=== PATIENT | female | born 1965 | race Caucasian/White ===

== ENCOUNTER 2017-12-26 11:19 | Outpatient (REF) | payer MEDICAID, SELFPAY ==
[2017-12-26 13:32] LABS: ALT 18 U/L (12-78); AST 21 U/L (15-37); Albumin 3.4 g/dL (3.4-5.0); Alkaline Phosphatase 135 U/L (46-116); Anion Gap 9.1 mmol/L (3-11); BUN 8 mg/dL (7-18); Bilirubin, Total 0.5 mg/dL (0.2-1.0); CO2 24.9 mmol/L (21.0-32.0); CREATININE 1.09 mg/dL (0.55-1.02); Calcium 8.9 mg/dL (8.5-10.1); Chloride 107 mmol/L (98-107); Cholesterol 194 mg/dL (50-200); Estimated GFR 52.31 (mL/min/1.73m2); Glucose 112 mg/dL (70-100); HDL Cholesterol 39 mg/dL (40-60); LDL CHOLESTEROL 109 mg/dL (<100); Potassium 3.7 mmol/L (3.5-5.1); Sodium 141 mmol/L (136-145); TSH (W/Ref FT4) 1.64 uIU/mL (0.358-3.74); Triglyceride 266 mg/dL (30-150)
== END 2017-12-26 11:39 ==
LOC: NCHCN 11:19
PROVIDERS: PCP Nurse Practitioner Family; Visit Provider Nurse Practitioner Family
DX: R68.89 Other general symptoms and signs (principal); Z13.6 Encounter for screening for cardiovascular disorders; Z13.1 Encounter for screening for diabetes mellitus
CPT/HCPCS: 80053; 80061; 83721; 84443

== ENCOUNTER 2018-01-11 14:55 | Outpatient (REF) | payer MEDICAID, SELFPAY ==
[2018-01-11 19:12] LABS: HCT 44.8 % (36.0-46.0); HGB 15.1 g/dL (12.0-15.5); Mean Corp. HGB Concentration 33.7 g/dL (32.0-36.0); Mean Corpuscular Hemoglobin 29.9 pg (27.0-33.0); Mean Corpuscular Volume 88.7 fL (80-95); Mean Platelet Volume 10.3 fL (8.0-11.0); Platelet Count 264 x1000/uL (130-400); RBC 5.05 m/cumm (4.00-5.20); RBC Distribution Width 14.4 % (11.7-14.6); White Blood Cell Count 6.67 k/cumm (4.4-10.8)
[2018-01-15 10:23] LABS: Hepatitis C Ab w Rflx HCV PCR Negative (NEGAT)
== END 2018-01-11 15:15 ==
LOC: NCHCN 14:55
PROVIDERS: PCP Nurse Practitioner Family; Visit Provider Nurse Practitioner Family
DX: R74.8 Abnormal levels of other serum enzymes (principal); Z11.59 Encounter for screening for other viral diseases
CPT/HCPCS: 85027; 86803

== ENCOUNTER 2018-01-22 00:49 | Outpatient (CLI) | payer MEDICAID, SELFPAY ==
--- NOTE | 2018-01-22 13:12 | DI.MAMMO_ITS ---
SYMPTOM/DIAGNOSIS: SCREENING, Z12.31 PREVENTATIVE CARE, Z00.00 BILATERAL SCREENING MAMMOGRAM: Mammograms were interpreted according to the usual protocol including computer analysis with CAD system, tomosynthesis and C view imaging. Comparison is made with exams from 2013 through 2017. The breasts are composed of scattered fibroglandular densities, breast density category B. A biopsy marker clip is again noted in the upper outer quadrant of the right breast. No suspicious masses or suspicious microcalcifications are seen. There has been no significant change. IMPRESSION: Category 1-B, negative mammogram. Yearly screening mammography is recommended. [facility] ASSESSMENT OF FINDINGS: Negative. Category 1. Patient will receive a letter notifying them of these results. BI-RADS category B. There are scattered areas of fibroglandular density.
== END 2018-01-22 01:09 ==
PROVIDERS: PCP Nurse Practitioner Family; Visit Provider Nurse Practitioner Family
DX: Z12.31 Encounter for screening mammogram for malignant neoplasm of breast (principal)
CPT/HCPCS: 77063; 77067

== ENCOUNTER 2018-06-29 14:54 | Emergency (ER) | payer MEDICARE, MEDICAID, SELFPAY ==
[2018-06-29] VITALS (11 sets, daily range): BP systolic 125–140; BP diastolic 48–77; PULSE 59–77; RESP 14–24; TEMP 36.1; O2SAT 97
--- NOTE | 2018-06-29 15:15 | DI.RAD_ITS ---
SYMPTOMS/DIAGNOSIS: CHEST PAIN AP AND LATERAL CHEST: Comparison is made with October,. The heart size is normal. The aorta is mildly tortuous. The lungs are clear. The right diaphragm is mildly elevated. IMPRESSION: No acute abnormality.
--- NOTE | 2018-06-29 15:15 | DI.CT_ITS ---
SYMPTOMS/DIAGNOSIS: HEADACHE, DIZZINESS NONCONTRAST HEAD CT: No intracranial hemorrhage or skull fracture is seen. The ventricles are normal in size. There is no evidence of mass or infarct. The visualized portions of the sinuses and mastoid air cells appear clear. IMPRESSION: Negative head CT.
--- NOTE | 2018-06-29 15:24 | ED.GENADUL_ITS ---
Discharge Plan Disposition Patient Disposition: HOME Condition: Stable Discharge Details Chief Complaint: Chest Pain Clinical Impression: Vertigo, Chest pain Primary Care Provider: Liam Chi ED Provider: Dev Florence Home Meds and New Rx's Prescriptions: New meclizine 25 mg tablet 25 mg PO TID PRN (Reason: dizziness) Qty: 30 RF: 0 Continued ropinirole 1 MG tablet 2 mg PO .QHS RF: 0 sumatriptan succinate [Imitrex] 50 MG tablet 50 mg PO PRN PRNRF: 0 estradiol 1 MG tablet 1 mg PO DAILY RF: 0 docusate sodium [Colace] 100 MG capsule 100 mg PO BID RF: 0 pyridoxine (vitamin B6) [Vitamin B-6] 50 MG tablet 50 mg PO DAILY RF: 0 topiramate 100 MG tablet 100 mg PO BID RF: 0 naproxen sodium 220 MG capsule 220 mg PO PRN PRNRF: 0 fluticasone propionate [Flovent HFA] 120 PUFF HFA aerosol inhaler 2 puff Inhalation BID RF: 0 levalbuterol tartrate [Xopenex HFA] 200 PUFF HFA aerosol inhaler 2 puff Inhalation PRN PRNRF: 0 venlafaxine 75 MG capsule,extended release 24hr 75 mg PO BID RF: 0 albuterol sulfate [ProAir HFA] 200 PUFF HFA aerosol inhaler 2 puff Inhalation Q4H PRN PRNRF: 0 Discharge Instructions Instructions: Chest Pain (ED), Vertigo (ED) Additional Instructions: follow up with your primary care provider in a week especially if symptoms continue return to the emergency department if you have severe worsening symptoms, difficulty breathing or fevers Medical Decision Making 52 yo female with hx per her of migraines, epilepsy, who comes in with 3 days of feeling her heart racing and feeling dizzy like the room is spinning and unsteadiness. She states the pain is anterior chest and is positional, feels better sitting up. Denies pain with exertion or radiation of the pain. She has no focal neuro deficits and reassuring HINTS exam so doubt acute cva, suspect possible peripheral vertigo. Given her chest pain will obtain troponin, heart score is 1. No tachycardia, hypoxia or evidence of dvt on exam so doubt PE at this time and no tearing back pain, neck pain and normal vascular exam so doubt dissection at this time pt remains stable, ambulating on her own though still feels dizzy per pt. Labs and imaging unremarkable, do not feel further w/u indicated at this time and that she can f/u with pcp as an outpatient, return precautions given Differential Diagnosis vertigo, acs, arrythmia Medical Records Medical records reviewed: Yes I reviewed the patient's medical records. Imaging Data Radiologic Study: Attestation: I personally reviewed and interpreted this imaging study as follows: Imaging: CT Scan Radiologist's impression: no acute findings Radiologic Study #2: Attestation: I personally reviewed and interpreted this imaging study as follows: Imaging: X-Ray Radiologist's impression: no acute findings on xray Lab Data Lab results reviewed: Yes I reviewed the patient's lab results. ECG Data Attestation: I personally reviewed and interpreted this ECG (s) as follows: Prior ECG tracings: not available for review Interpretation: sinus rythm, rate of 60, pr 174, no acute st t wave ischemic findings HPI General Mode of arrival: ambulatory . Date/Time Provider Initiated Documentation: 06/29/18 15:04 . Limitations to Documentation: no limitations . Information obtained by: patient . History of Present Illness 52 year old F presents to the emergency department with the chief complaint of dizzy, described as mild, No relieving factors improve symptom(s), No exacerbating factors reported . Patient did receive the following treatments prior to arrival, none Related Data Home Medications Medication Instructions Recorded Confirmed docusate sodium [Colace] 100 mg PO BID 04/30/13 12/22/14 estradiol 1 mg PO DAILY 04/30/13 12/22/14 fluticasone propionate [Flovent 2 puff INHALATION BID 04/30/13 12/22/14 HFA] levalbuterol tartrate [Xopenex HFA] 2 puff INHALATION PRN PRN 04/30/13 12/12/14 naproxen sodium 220 mg PO PRN PRN 04/30/13 12/22/14 pyridoxine (vitamin B6) [Vitamin 50 mg PO DAILY 04/30/13 12/22/14 B-6] ropinirole 2 mg PO .QHS 04/30/13 12/22/14 sumatriptan succinate [Imitrex] 50 mg PO PRN PRN 04/30/13 12/22/14 topiramate 100 mg PO BID 04/30/13 12/22/14 albuterol sulfate [ProAir HFA] 2 puff INHALATION Q4H PRN PRN 12/12/14 12/22/14 venlafaxine 75 mg PO BID 12/12/14 12/22/14 meclizine 25 mg PO TID PRN #30 tab 06/29/18 Previous Rx's Medication Instructions Recorded meclizine 25 mg PO TID PRN #30 tab 06/29/18 Allergies Allergy/AdvReac Type Severity Reaction Status Date / Time clindamycin Allergy Intermediate Skin Rash Unverified 06/29/18 15:37 Penicillins Allergy Intermediate Skin Rash Unverified 06/29/18 15:37 valdecoxib [From Bextra] Allergy Intermediate Skin Rash Unverified 06/29/18 15:37 tolmetin Allergy Swelling/Ed Unverified 06/29/18 15:37 abelino mirtazapine [From Remeron] AdvReac Intermediate confusion, Unverified 06/29/18 15:37 disorientation General Stated Complaint: Chest Pain GREG: 2 Review of Systems Review of Systems All systems reviewed & are unremarkable except as noted in HPI and below Constitutional Denies chills, Denies fever(s) and Denies weakness Cardiovascular Denies dyspnea Respiratory Denies cough and Denies dyspnea Gastrointestinal Denies abdominal pain, Denies nausea and Denies vomiting Musculoskeletal Denies joint swelling Integumentary/Breasts Denies rash Neurologic Denies weakness PFSH Social History Smoking/Tobacco Use Status: Never Alcohol Intake: never Drug use: Never Substance use type: does not use Do you feel safe at home: Yes Do you feel safe in your relationship?: Yes Exam Const General: no acute distress Orientation: alert [facility] Head: normal to inspection Ears: external ears normal General nose exam: external nose normal Mouth: moist mucous membranes Eyes General: appearance normal, both eyes and all related structures Neck Neck: normal visual inspection Resp Effort & Inspection: normal respiratory effort and able to speak in complete sentences Cardio Rate: regular rate Skin General skin exam: no rashes or lesions noted Neuro General: alert and oriented x3 Extrem General: normal to inspection Psych Mental Status: mental status grossly normal Course Vital Signs Temperature 36.1 C L 06/29/18 14:58 Pulse 64 06/29/18 14:58 Respiratory Rate 18 06/29/18 14:58 Temperature 36.1 C L 06/29/18 14:58 Temperature Source Skin 06/29/18 14:58 Pulse 64 06/29/18 14:58 Respiratory Rate 18 06/29/18 14:58 Blood Pressure 125/77 06/29/18 15:02 Pain Level 7 06/29/18 15:02
[2018-06-29] MEDS: Meclizine 25 MG TAB PO (15:34)
[2018-06-29] MEDS: Normal Saline Flush 10 ML SYR IVP (15:34)
[2018-06-29] MEDS: Normal Saline 1,000 ML 1000 ML IV (15:34)
[2018-06-29 15:39] LABS: Abs Immature Grans 0.02 k/cumm (0.0-0.09); Absolute Basophil Count 0.01 k/cumm (0.0-0.2); Absolute Lymphocyte Count 2.47 k/cumm (1.2-3.4); Absolute Monocyte Count 0.62 k/cumm (0.11-0.7); Absolute Neutrophil Count 5.03 k/cumm (1.2-6.7); Basophils % 0.1; HCT 46.1 % (36.0-46.0); HGB 16.2 g/dL (12.0-15.5); Immature Grans % 0.2; Lymphocytes % 30.3; Mean Corp. HGB Concentration 35.1 g/dL (32.0-36.0); Mean Corpuscular Hemoglobin 30.6 pg (27.0-33.0); Mean Corpuscular Volume 87.1 fL (80-95); Mean Platelet Volume 9.7 fL (8.0-11.0); Monocytes % 7.6; Neutrophils % 61.8; Platelet Count 233 x1000/uL (130-400); RBC 5.29 m/cumm (4.00-5.20); RBC Distribution Width 13.4 % (11.7-14.6); White Blood Cell Count 8.15 k/cumm (4.4-10.8)
[2018-06-29 15:56] LABS: Prothrombin Time 9.9 sec (9.3-11.0)
[2018-06-29 15:59] LABS: ALT 36 U/L (12-78); AST 29 U/L (15-37); Albumin 3.5 g/dL (3.4-5.0); Alkaline Phosphatase 146 U/L (46-116); Anion Gap 11.7 mmol/L (3-11); BUN 13 mg/dL (7-18); Bilirubin, Total 0.6 mg/dL (0.2-1.0); CO2 24.3 mmol/L (21.0-32.0); Calcium 9.2 mg/dL (8.5-10.1); Chloride 106 mmol/L (98-107); Estimated GFR 51.76 (mL/min/1.73m2); Glucose 112 mg/dL (70-100); Potassium 3.2 mmol/L (3.5-5.1); Sodium 142 mmol/L (136-145); Total Protein 7.7 g/dL (6.4-8.2)
[2018-06-29 16:04] LABS: Troponin I < 0.02 ng/mL (0.00-0.06)
== END 2018-06-29 16:50 | disposition home or self-care (01) ==
PROVIDERS: Emergency Provider Emergency Medicine; PCP Nurse Practitioner Family
DX: R42 Dizziness and giddiness (principal); R07.9 Chest pain, unspecified
CPT/HCPCS: 36415; 80053; 93005; 96360; 99285; 70450; 71046; 84484; 85025; 85610; 85730; 93010

== ENCOUNTER 2018-07-13 14:22 | Outpatient (CLI) | payer MEDICAID, SELFPAY ==
[2018-07-13 15:15] LABS: Abs Immature Grans 0.02 k/cumm (0.0-0.09); Absolute Basophil Count 0.01 k/cumm (0.0-0.2); Absolute Lymphocyte Count 2.41 k/cumm (1.2-3.4); Absolute Monocyte Count 0.54 k/cumm (0.11-0.7); Absolute Neutrophil Count 3.39 k/cumm (1.2-6.7); Basophils % 0.2; HCT 43.1 % (36.0-46.0); HGB 14.9 g/dL (12.0-15.5); Immature Grans % 0.3; Lymphocytes % 37.8; Mean Corp. HGB Concentration 34.6 g/dL (32.0-36.0); Mean Corpuscular Hemoglobin 30.5 pg (27.0-33.0); Mean Corpuscular Volume 88.1 fL (80-95); Mean Platelet Volume 9.6 fL (8.0-11.0); Monocytes % 8.5; Neutrophils % 53.2; Platelet Count 247 x1000/uL (130-400); RBC 4.89 m/cumm (4.00-5.20); RBC Distribution Width 13.7 % (11.7-14.6); White Blood Cell Count 6.37 k/cumm (4.4-10.8)
[2018-07-13 16:15] LABS: PROTEIN 33.9 mg/dL; Prot/Crea Ur Ratio 0.13
[2018-07-13 17:55] LABS: ALT 41 U/L (12-78); AST 28 U/L (15-37); Albumin 3.7 g/dL (3.4-5.0); Alkaline Phosphatase 138 U/L (46-116); Anion Gap 10.7 mmol/L (3-11); BUN 16 mg/dL (7-18); Bilirubin, Total 0.6 mg/dL (0.2-1.0); CO2 23.3 mmol/L (21.0-32.0); CREATININE 0.91 mg/dL (0.55-1.02); Calcium 8.8 mg/dL (8.5-10.1); Chloride 105 mmol/L (98-107); FREE T4 0.96 ng/dL (0.76-1.46); Glucose 90 mg/dL (70-100); Potassium 3.6 mmol/L (3.5-5.1); Sodium 139 mmol/L (136-145); TSH 2.33 uIU/mL (0.358-3.74); Total Protein 7.3 g/dL (6.4-8.2)
[2018-07-13 18:43] LABS: Vitamin B12 272 pg/mL (193-986)
[2018-07-15 17:17] LABS: T3, Total 160 ng/dl (97-169)
[2018-07-16 08:24] LABS: Vitamin D 25 Total 6.5 ng/ml (30-100)
[2018-07-16 09:58] LABS: Folate 5.6 ng/ml
[2018-07-16 12:10] LABS: Rheumatoid Factor 10 IU/mL (<12.5)
[2018-07-16 14:31] LABS: ANA Interpretation Negative (NEGAT)
[2018-07-16 15:52] LABS: Albumin 55.1 % (55.8-66.1); Total Protein 7.3 g/dl (6.3-8.2)
[2018-07-18 09:11] LABS: Thiamine (Vitamin B1), WB 96 nmol/L (70-180)
[2018-07-19 16:13] LABS: Pyridoxal 5-Phosphate (PLP), P 34 mcg/L (5-50)
== END 2018-07-13 14:42 ==
PROVIDERS: PCP Nurse Practitioner Family; Visit Provider Psychiatry & Neurology Neurology
DX: R56.9 Unspecified convulsions (principal); G25.3 Myoclonus; G43.019 Migraine without aura, intractable, without status migrainosus
CPT/HCPCS: 36415; 80053; 82306; 82565; 82607; 82746; 84155; 84156; 84165; 84207; 84425; 84439; 84443; 84480; 85025; 86038; 86320; 86431

== ENCOUNTER 2018-07-16 01:11 | Outpatient (CLI) | payer MEDICARE, MEDICAID, SELFPAY ==
--- NOTE | 2018-07-16 14:30 | NS.NUTBLAN_ITS ---
DESCRIPTION/ASSESSMENT: Alyssa Barajas presents for nutrition consult in preparation for bariatric surgery. Weight today: 246.9 Height: 55 inches BMI: 41.1 Alyssa walks 20 minutes when it is not raining, 3-4 days a week. Alyssa states she eats rice cakes and peanut butter around noon, and last night had Khmer green beans and 1 cup carrots. She does not drink soda. She does drink 8 16oz rey daily. She eats out twice weekly and would have small mac and cheese from [facility]. She reports allergies to some uncooked fruits. NUTRITIONAL DIAGNOSIS: Class 3 obesity caused by history of excess calories and inactivity. INTERVENTION: Reviewed chart for documenting food and she voices understanding. Discussed requirements for bariatric surgery and sorted paperwork so she was clear what is needed. PLAN: She will document her food for the next month on the 7 day food journal. She will return to monitor food, physical activity and BMI.
== END 2018-07-16 01:31 ==
PROVIDERS: PCP Nurse Practitioner Family; Visit Provider Dietitian, Registered
DX: E66.09 Other obesity due to excess calories (principal); Z68.41 Body mass index [BMI] 40.0-44.9, adult; Z71.3 Dietary counseling and surveillance
CPT/HCPCS: 97802

== ENCOUNTER 2018-09-17 10:42 | Outpatient (CLI) | payer MEDICARE, MEDICAID, SELFPAY ==
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
== END 2018-09-17 11:02 ==
PROVIDERS: PCP Nurse Practitioner Family; Visit Provider Dietitian, Registered
DX: E66.01 Morbid (severe) obesity due to excess calories (principal); Z71.3 Dietary counseling and surveillance
CPT/HCPCS: 97803

== ENCOUNTER 2019-01-31 09:08 | Outpatient (CLI) | payer MEDICARE, MEDICAID, SELFPAY ==
[2019-01-31 09:48] LABS: Abs Immature Grans 0.02 k/cumm (0.0-0.09); Absolute Eosinophil Count 0.01 k/cumm (0.0-0.7); Absolute Lymphocyte Count 2.28 k/cumm (1.2-3.4); Absolute Neutrophil Count 3.42 k/cumm (1.2-6.7); Eosinophils % 0.2; HCT 44.4 % (36.0-46.0); HGB 14.8 g/dL (12.0-15.5); Immature Grans % 0.3; Lymphocytes % 36.6; Mean Corp. HGB Concentration 33.3 g/dL (32.0-36.0); Mean Corpuscular Hemoglobin 29.9 pg (27.0-33.0); Mean Corpuscular Volume 89.7 fL (80-95); Mean Platelet Volume 9.3 fL (8.0-11.0); Neutrophils % 54.9; Platelet Count 271 x1000/uL (130-400); RBC 4.95 m/cumm (4.00-5.20); RBC Distribution Width 13.9 % (11.7-14.6); White Blood Cell Count 6.23 k/cumm (4.4-10.8)
[2019-01-31 10:38] LABS: ALT 22 U/L (14-59); AST 14 U/L (15-37); Albumin 3.3 g/dL (3.4-5.0); Alkaline Phosphatase 130 U/L (46-116); Anion Gap 7.5 mmol/L (3-11); BUN 13 mg/dL (7-18); Bilirubin, Total 0.3 mg/dL (0.2-1.0); CO2 29.5 mmol/L (21.0-32.0); CREATININE 1.06 mg/dL (0.55-1.02); Calcium 8.8 mg/dL (8.5-10.1); Calculated LDL 103 mg/dL; Chloride 107 mmol/L (98-107); Cholesterol 177 mg/dL (<200); Estimated GFR 53.82 (mL/min/1.73m2); Glucose 105 mg/dL (74-106); HDL Cholesterol 44 mg/dL (40-60); Sodium 144 mmol/L (136-145); Total Protein 6.9 g/dL (6.4-8.2); Triglyceride 150 mg/dL (<150)
== END 2019-01-31 09:28 ==
PROVIDERS: PCP Nurse Practitioner Family; Visit Provider Nurse Practitioner Family
DX: R53.83 Other fatigue (principal); Z68.41 Body mass index [BMI] 40.0-44.9, adult; E66.01 Morbid (severe) obesity due to excess calories
CPT/HCPCS: 36415; 80053; 80061; 85025

== ENCOUNTER 2020-02-25 18:38 | Outpatient (REF) | payer MEDICARE, MEDICAID, SELFPAY ==
[2020-02-25 18:18] LABS: HCT 40.1 % (36.0-46.0); HGB 13.8 g/dL (11.2-15.7); MCH 30.2 pg (27.0-33.0); MCHC 34.4 % (32.0-36.0); MCV 87.7 fL (80-95); MPV 9.9 fL (8.0-11.0); Platelet Count 279 10^3/uL (130-400); RBC 4.57 10^6/uL (3.93-5.22); RDW 13.3 % (11.7-14.6); RDW-SD 42.1 fL; WBC 6.85 10^3/uL (4.4-10.8)
[2020-02-25 18:43] LABS: ALT 30 U/L (14-59); AST 20 U/L (15-37); Albumin 3.2 g/dL (3.4-5.0); Alkaline Phosphatase 97 U/L (46-116); Anion Gap 8.7 mmol/L (3-11); BUN 24 mg/dL (7-18); Bilirubin, Total 0.4 mg/dL (0.2-1.0); CO2 31.3 mmol/L (21.0-32.0); CREATININE 1.38 mg/dL (0.55-1.02); Calcium 8.6 mg/dL (8.5-10.1); Calculated LDL 103 mg/dL (<100); Chloride 101 mmol/L (98-107); Cholesterol 187 mg/dL (<200); Estimated GFR 39.55 (mL/min/1.73m2); Glucose 90 mg/dL (74-106); HDL Cholesterol 46 mg/dL (40-60); Sodium 141 mmol/L (136-145); TSH (W/Ref FT4) 2.56 uIU/mL (0.36-3.74); Total Protein 6.9 g/dL (6.4-8.2); Triglyceride 191 mg/dL (<150)
[2020-02-25 18:55] LABS: Potassium 2.6 mmol/L (3.5-5.1)
[2020-02-27 00:32] LABS: COVID-19 RT-PCR Result NEGATIVE (Negative)
== END 2020-02-25 18:58 ==
LOC: NCHCN 18:38
PROVIDERS: PCP Nurse Practitioner Family; Visit Provider Nurse Practitioner Family
DX: E55.9 Vitamin D deficiency, unspecified (principal); L65.9 Nonscarring hair loss, unspecified; R53.83 Other fatigue; R68.89 Other general symptoms and signs; Z11.52 Encounter for screening for COVID-19; E66.01 Morbid (severe) obesity due to excess calories
CPT/HCPCS: 80053; 80061; 85027; U0003; 84443

== ENCOUNTER 2020-03-19 23:52 | Outpatient (REF) | payer MEDICARE, MEDICAID, SELFPAY ==
[2020-03-19 18:43] LABS: Anion Gap 10.8 mmol/L (3-11); BUN 22 mg/dL (7-18); CO2 25.2 mmol/L (21.0-32.0); CREATININE 1.4 mg/dL (0.55-1.02); Calcium 9.4 mg/dL (8.5-10.1); Chloride 108 mmol/L (98-107); Glucose 89 mg/dL (74-106); Potassium 3.8 mmol/L (3.5-5.1); Sodium 144 mmol/L (136-145)
[2020-03-20 12:57] LABS: Ferritin 182 ng/mL (8-252)
[2020-03-20 13:04] LABS: Vitamin D 25 Total 39.6 ng/ml (30-100)
== END 2020-03-19 23:53 | disposition home or self-care (01) ==
LOC: NCHCN 23:52
PROVIDERS: PCP Nurse Practitioner Family; Visit Provider Family Medicine
DX: N28.9 Disorder of kidney and ureter, unspecified (principal); E55.9 Vitamin D deficiency, unspecified; L65.9 Nonscarring hair loss, unspecified; E87.6 Hypokalemia
CPT/HCPCS: 80048; 82306; 82728

== ENCOUNTER 2020-03-20 20:12 | Outpatient (REF) | payer MEDICARE, MEDICAID, SELFPAY ==
[2020-03-20 13:49] LABS: HCT 42.7 % (36.0-46.0); HGB 14.3 g/dL (11.2-15.7); MCH 30.5 pg (27.0-33.0); MCHC 33.5 % (32.0-36.0); MPV 10.2 fL (8.0-11.0); Platelet Count 271 10^3/uL (130-400); RBC 4.69 10^6/uL (3.93-5.22); RDW 14.3 % (11.7-14.6); RDW-SD 47.9 fL; WBC 9.78 10^3/uL (4.4-10.8)
[2020-03-20 14:34] LABS: ALT 25 U/L (14-59); AST 16 U/L (15-37); Albumin 3.3 g/dL (3.4-5.0); Alkaline Phosphatase 104 U/L (46-116); Amylase 35 U/L (25-115); Anion Gap 7.2 mmol/L (3-11); BUN 23 mg/dL (7-18); Bilirubin, Total 0.5 mg/dL (0.2-1.0); CO2 27.8 mmol/L (21.0-32.0); CREATININE 1.4 mg/dL (0.55-1.02); Calcium 8.9 mg/dL (8.5-10.1); Chloride 106 mmol/L (98-107); Glucose 88 mg/dL (74-106); Lipase 155 U/L (73-393); Sodium 141 mmol/L (136-145); Total Protein 7.1 g/dL (6.4-8.2)
[2020-03-25 15:22] LABS: Chlamydia Result Negative (Negative); GC Result Negative (Negative)
== END 2020-03-20 20:13 | disposition home or self-care (01) ==
LOC: NCHCN 20:12
PROVIDERS: PCP Nurse Practitioner Family; Visit Provider Nurse Practitioner Family
DX: E87.6 Hypokalemia (principal); N28.9 Disorder of kidney and ureter, unspecified; R58 Hemorrhage, not elsewhere classified
CPT/HCPCS: 80053; 83690; 85027; 87491; 87591; 82150; 87480; 87510; 87660

== ENCOUNTER 2020-03-23 01:13 | Outpatient (CLI) | payer MEDICARE, MEDICAID, SELFPAY ==
--- NOTE | 2020-03-23 | DI.US_ITS ---
EXAM: US ABDOMEN RENAL CLINICAL HISTORY: RUQ ABD PAIN,R10.11,MILD RENAL INSUFFICIENCY,N28.9,URINARY HESITANCY TECHNIQUE: Ultrasound abdomen performed using standard protocol. COMPARISON: US ABDOMEN ULTRASOUND (P) from 04/17/2015 FINDINGS: ABDOMINAL AORTA AND IVC: Visualized portions normal caliber. PANCREAS: Normal where visualized. LIVER: Diffuse increased echogenicity of the liver consistent with fatty infiltration. There is a 0. 9 x 0.6 cm simple cyst within the left lobe of the liver. The liver measures 13.8 cm long. Hepatope samantha flow in the Portal Vein. GALLBLADDER: No evidence of cholelithiasis. No evidence of wall thickening. No pericholecystic fluid identified. BILIARY SYSTEM: Common bile duct measures < 7 mm. No intrahepatic biliary ductal dilation. GLASGOW'S SIGN: Negative. SPLEEN: Not enlarged. The spleen measures 12.2 cm long. ASCITES: None seen. Renal size in cm: Right: 10.6. Left: 11.5. Echogenicity: Normal. Hydronephrosis: No. Cyst or mass: No. Nephrolithiasis: No. Other findings: None. Bladder:The bladder was empty during the examination and cannot be evaluated. Renal color flow: Symmetric and within normal limits. IMPRESSION: 1. Fatty infiltration of the liver. 2. Unremarkable kidneys. 3. Urinary bladder was empty and could not be evaluated sonographically. DATA REPOSITORY:
== END 2020-03-23 01:14 | disposition home or self-care (01) ==
LOC: DI 01:14
PROVIDERS: PCP Nurse Practitioner Family; Visit Provider Family Medicine
DX: K76.0 Fatty (change of) liver, not elsewhere classified (principal); N28.9 Disorder of kidney and ureter, unspecified
CPT/HCPCS: 76770; 76700

== ENCOUNTER 2020-05-15 12:16 | Outpatient (REF) | payer MEDICARE, MEDICAID, SELFPAY ==
[2020-05-15 19:30] LABS: ALT 22 U/L (14-59); AST 17 U/L (15-37); Albumin 3.6 g/dL (3.4-5.0); Alkaline Phosphatase 137 U/L (46-116); BUN 21 mg/dL (7-18); Bilirubin, Total 0.6 mg/dL (0.2-1.0); CREATININE 1.5 mg/dL (0.55-1.02); Calcium 9.3 mg/dL (8.5-10.1); Chloride 109 mmol/L (98-107); Estimated GFR 35.92 (mL/min/1.73m2); Glucose 82 mg/dL (74-106); Potassium 3.8 mmol/L (3.5-5.1); Sodium 144 mmol/L (136-145); Total Protein 7.4 g/dL (6.4-8.2); Vitamin B12 353 pg/mL (193-986)
== END 2020-05-15 12:17 | disposition home or self-care (01) ==
LOC: NCHCN 12:16
PROVIDERS: PCP Nurse Practitioner Family; Visit Provider Nurse Practitioner Family
DX: N28.89 Other specified disorders of kidney and ureter (principal); R74.8 Abnormal levels of other serum enzymes; G60.8 Other hereditary and idiopathic neuropathies
CPT/HCPCS: 80053; 82607

== ENCOUNTER 2021-08-25 14:26 | Outpatient (REF) | payer MEDICARE, MEDICAID, SELFPAY ==
[2021-08-25 15:19] LABS: HCT 40.9 % (36.0-46.0); MCH 29.7 pg (27.0-33.0); MCHC 34.2 % (32.0-36.0); MCV 87 fL (80-95); MPV 10.1 fL (8.0-11.0); Platelet Count 213 10^3/uL (130-400); RBC 4.72 10^6/uL (3.93-5.22); RDW-SD 40.9 fL; WBC 4.88 10^3/uL (4.4-10.8)
[2021-08-25 16:20] LABS: Anion Gap 11.3 mmol/L (3-11); BUN 26 mg/dL (7-18); CO2 23.7 mmol/L (21.0-32.0); CREATININE 1.3 mg/dL (0.55-1.02); Calcium 8.7 mg/dL (8.5-10.1); Calculated LDL 136 mg/dL (<100); Chloride 108 mmol/L (98-107); Cholesterol 213 mg/dL (<200); Estimated GFR 42.22 (mL/min/1.73m2); Glucose 97 mg/dL (74-106); HDL Cholesterol 58 mg/dL (40-60); Potassium 3.6 mmol/L (3.5-5.1); Sodium 143 mmol/L (136-145); Triglyceride 97 mg/dL (<150)
== END 2021-08-25 14:27 | disposition home or self-care (01) ==
LOC: NCHCN 14:26
PROVIDERS: PCP Nurse Practitioner Family; Visit Provider Physician Assistant
DX: N28.9 Disorder of kidney and ureter, unspecified (principal); R74.8 Abnormal levels of other serum enzymes
CPT/HCPCS: 80048; 80061; 85027

== ENCOUNTER 2022-09-21 19:41 | Outpatient (REF) | payer MEDICARE, MEDICAID, SELFPAY ==
[2022-09-21 19:53] LABS: HCT 41.7 % (36.0-46.0); HGB 14.3 g/dL (11.2-15.7); MCH 29.7 pg (27.0-33.0); MCHC 34.3 % (32.0-36.0); MCV 87 fL (80-95); MPV 9.4 fL (8.0-11.0); Platelet Count 255 10^3/uL (130-400); RBC 4.82 10^6/uL (3.93-5.22); RDW 14.1 % (11.7-14.6); RDW-SD 43.7 fL; WBC 7.77 10^3/uL (4.4-10.8)
[2022-09-21 20:31] LABS: Anion Gap 11.6 mmol/L (3-11); BUN 17 mg/dL (7-18); CO2 25.4 mmol/L (21.0-32.0); CREATININE 1.2 mg/dL (0.55-1.02); Calcium 9.1 mg/dL (8.5-10.1); Chloride 112 mmol/L (98-107); Estimated GFR 52.47 (mL/min/1.73m2); Glucose 101 mg/dL (74-106); NT-proBNP 65 pg/mL (<300); Potassium 3.9 mmol/L (3.5-5.1); Sodium 149 mmol/L (136-145)
== END 2022-09-21 19:42 | disposition home or self-care (01) ==
LOC: NCHCN 19:41
PROVIDERS: Visit Provider Physician Assistant
DX: R60.9 Edema, unspecified (principal)
CPT/HCPCS: 80048; 85027; 83880

== ENCOUNTER 2022-10-07 11:41 | Emergency (ER) | payer MEDICARE, MEDICAID, SELFPAY ==
[2022-10-07] VITALS (18 sets, daily range): BP systolic 119–129; BP diastolic 80–84; PULSE 62–75; RESP 16–20; TEMP 36.4; O2SAT 79–100
--- NOTE | 2022-10-07 11:45 | RT.EKG_ITS ---
APPROVED REPORT Exam: Resting ECG Reason for Exam: Dyspnea Patient Location: E HR:66 bpm ECG Measurements Heart Rate 66 AXIS TX 206 P 40 QRSd 110 QRS -38 QT 406 T 9 QTc 427 Conclusion Sinus rhythm...normal P axis, V-rate 60- 99 Borderline prolonged TX interval...TX >202, V-rate 50- 90 Left axis deviation...QRS axis (-30,-90)
--- NOTE | 2022-10-07 12:30 | DI.RAD_ITS ---
Exam(s) XR CHEST 2V PA LATERAL EXAM: XR CHEST 2V PA LATERAL CLINICAL HISTORY: Shortness of breath TECHNIQUE: 2D digital imaging was performed of the chest. Two images were obtained. PA and lateral views were obtained. COMPARISON: CR XR CHEST 2V PA LATERAL from 06/29/2018 FINDINGS: MEDIASTINUM: Normal. HEART: Normal. PULMONARY VASCULATURE: Normal. LUNGS: Clear. PLEURAL SPACE: No pleural effusion or pneumothorax. BONE:Within normal limits for the patient's age. OTHER FINDINGS:There is unchanged elevation of the right hemidiaphragm. IMPRESSION: No acute pulmonary findings. DATA REPOSITORY: RADIATION DOSE DELIVERED:
[2022-10-07 13:11] LABS: Abs Immature Grans 0.05 10^3/uL (0.0-0.06); Absolute Basophil Count 0.01 10^3/uL (0.0-0.2); Absolute Lymphocyte Count 2.02 10^3/uL (1.2-3.4); Basophils % 0.1; HCT 43.6 % (36.0-46.0); HGB 14.7 g/dL (11.2-15.7); Immature Grans % 0.6; Lymphocytes % 24.1; MCH 29.5 pg (27.0-33.0); MCHC 33.7 % (32.0-36.0); MCV 88 fL (80-95); MPV 8.9 fL (8.0-11.0); Monocytes % 7.2; Platelet Count 239 10^3/uL (130-400); RBC 4.98 10^6/uL (3.93-5.22); RDW 14.1 % (11.7-14.6); RDW-SD 44.6 fL; WBC 8.38 10^3/uL (4.4-10.8)
[2022-10-07 13:44] LABS: ALT 22 U/L (14-59); AST 16 U/L (15-37); Albumin 3.5 g/dL (3.4-5.0); Alkaline Phosphatase 154 U/L (46-116); Anion Gap 9.4 mmol/L (3-11); BUN 11 mg/dL (7-18); Bilirubin, Total 0.4 mg/dL (0.2-1.0); CO2 26.6 mmol/L (21.0-32.0); CREATININE 1.3 mg/dL (0.55-1.02); Calcium 8.8 mg/dL (8.5-10.1); Chloride 106 mmol/L (98-107); Estimated GFR 47.37 (mL/min/1.73m2); Glucose 92 mg/dL (74-106); Magnesium 1.9 mg/dL (1.8-2.4); NT-proBNP 201 pg/mL (<300); Potassium 3.1 mmol/L (3.5-5.1); Sodium 142 mmol/L (136-145); Total Protein 7.6 g/dL (6.4-8.2); Troponin I < 50 ng/L (<or=60)
[2022-10-07 13:47] LABS: Prothrombin Time 9.9 sec (9.3-11.0)
[2022-10-07 13:48] LABS: COVID-19 PCR Negative (Negative); Influenza A PCR Negative (Negative); Influenza B PCR Negative (Negative); RSV PCR Negative (Negative)
[2022-10-07 13:49] LABS: Source Nasopharynx
--- NOTE | 2022-10-07 14:45 | DI.CT_ITS ---
Exam(s) CT RENAL COLIC WO EXAM: CT RENAL COLIC WO CLINICAL HISTORY: right flank pain. TECHNIQUE: Imaging Protocol: Axial computed tomography images with coronal and sagittal reformatted images were created and reviewed CONTRAST MATERIAL: Intravenous: none Oral: None COMPARISON: No exams were available for comparison FINDINGS: VISUALIZED LUNG BASES: No nodules nor pleural effusions evident. ABDOMEN: Images degraded by motion artifact. There is no ascites. LIVER: No discrete focal hepatic lesions. Mild steatosis. Subtle suggestion of possible cirrhotic s urface contour. GALLBLADDER/BILIARY: No obvious gallbladder pathology. CBD is not dilated. PANCREAS: No evidence of pancreatic mass nor dilatation of the pancreatic duct. SPLEEN: Spleen is not enlarged. No obvious intrasplenic lesions. ADRENALS: There are no significant adrenal masses. KIDNEYS:1.3 cm cyst in the lateral cortex of the right kidney. Also exophytic benign 1 cm cyst off t he medial cortex of the left kidney versus motion artifact. There are no obvious radiopaque calculi in the kidneys. No hydronephrosis. No hydroureter. No obvious calculi in the ureters and no calcul i seen in the nondistended urinary bladder.. ABDOMINAL AORTA: Abdominal aorta is not enlarged. LYMPH NODES: There is no retroperitoneal nor paraaortic adenopathy. ABDOMINAL WALL: No evidence of significant anterior abdominal wall nor inguinal hernia. GI: There is no evidence of bowel obstruction, free air, nor abscess. PELVIS: LYMPH NODES: There is no intrapelvic nor inguinal adenopathy. GI: No evidence of appendicitis.No evidence of sigmoid diverticulitis. URINARY BLADDER: No calculi nor obvious masses evident REPRODUCTIVE: Uterus is surgically absent. No abnormal adnexal masses. No free fluid. OSSEOUS: No significant osseous lesions. IMPRESSION: 1. Images are degraded by motion artifact. 2. No obvious radiopaque calculi evident in the urinary tracts and no obvious obstruction of the urin roxanna tracts. No calculi seen in the urinary bladder. 3. Previous hysterectomy. No abnormal adnexal masses. No bowel obstruction, free air, nor abscess. Called by myself to ER. RADIATION DOSE DELIVERED: 1,628.42mGy.cm Total DLP DATA REPOSITORY: All CT scans at this facility are submitted to the National Radiology Data Registry (NRDR) Dose Index Registry (DIR) with the [employer] (A[employer]). RADIATION OPTIMIZATION: All CT scans at this facility use at least one of these dose optimization te chniques: automated exposure control; mA and/or kV adjustment per patient size (includes targeted exa ms where dose is matched to clinical indication); or iterative reconstruction.
--- NOTE | 2022-10-07 15:08 | W.ED.GENAD ---
Discharge Plan Disposition Patient Disposition: Home Condition: Stable Discharge Details Clinical Impression: Viral illness Primary Care Provider: Unknown,Unknown ED Provider: Scarlet Spear Home Meds and New Rx's Prescriptions: Continued ropinirole 1 MG tablet 1 mg PO DIRECTED Patient Comments: 2-3 hours prior to HS sumatriptan succinate [Imitrex] 50 MG tablet 50 mg PO PRN PRN estradiol 1 MG tablet 1 mg PO DAILY docusate sodium [Colace] 100 MG capsule 100 mg PO BID pyridoxine (vitamin B6) [Vitamin B-6] 50 MG tablet 50 mg PO DAILY topiramate 100 MG tablet 125 mg PO BID naproxen sodium 220 MG capsule 220 mg PO PRN PRN fluticasone propionate [Flovent HFA] 120 PUFF HFA aerosol inhaler 2 puff Inhalation BID levalbuterol tartrate [Xopenex HFA] 200 PUFF HFA aerosol inhaler 2 puff Inhalation PRN PRN venlafaxine 75 MG capsule,extended release 24hr 100 mg PO BID albuterol sulfate [ProAir HFA] 200 PUFF HFA aerosol inhaler 2 puff Inhalation Q4H PRN PRN cholecalciferol (vitamin D3) 25 mcg (1,000 unit) Tablet 50 mcg PO DAILY potassium chloride 20 mEq tablet,ER particles/crystals 20 meq PO DAILY Patient Comments: Take 1 capsule by mouth once a day furosemide 20 mg tablet 20 mg PO DAILY propranolol 20 mg tablet 20 mg PO BID triamcinolone acetonide 0.1 % cream 1 applic TOPICAL BID Patient Comments: 1 a small amount to affected area twice a day Apply for no longer than 10 to 14 days amitriptyline 10 mg tablet 10 mg PO HS phentermine 15 mg Capsule 15 mg PO QAM Hair,Skin and Nails(FA-biotin) 133.3 mcg- 1,666.7 mcg capsule 1 cap PO DAILY clotrimazole 1 % Cream 1 applic TOPICAL BID minoxidil [Rogaine] 5 % Foam 1 applic TOPICAL DAILY polyethylene glycol 3350 [Miralax] 17 gram/dose Powder 17 g PO DAILY PRN meclizine 25 mg tablet 25 mg PO TID PRN (Reason: dizziness) Qty: 30 0RF Discharge Instructions Instructions: Viral Syndrome (ED) Additional Instructions: push fluids to stay well hydrated. ibuprofen and acetaminophen as directed for pain, fever, or aches. I did add a tick panel which is pending at discharge. please discuss with primary care provider to review results. Referrals: Unknown,Unknown [Primary Care Provider] - 10/11/22 (keep scheduled appointment with primary care provider on Monday, return sooner for new or worsening problems) Discharge Data Discharge Date/Time-TO BE ENTERED AT DEPARTURE: 10/07/22 18:08 Medical Decision Making <Brando Ramirez NP - Last Filed: 10/08/22 08:49> Patient presenting to the emergency department for chief complaint of shortness of breath with some chest tightness. She also states right flank pain. She over the last couple days has also developed a cough that is keeping her up at night. Feels some chills but denies fever and also reports decreased urine output. Patient has past medical history of sleep apnea, migraines, chronic kidney disease. Physical exam shows right flank tenderness, clear lung sounds, stable vital signs, otherwise unremarkable exam. We will admit patient has an odd affect. We will check patient's labs, EKG, and perform chest x-ray. Given flank pain we will hold off on CT imaging until labs are returned given patient's report of chronic kidney disease and oliguria. Patient given acetaminophen for discomfort pending results Reviewed patient's labs and CBC is completely unremarkable, CMP shows slightly decreased potassium at 3.1 which we will orally replete, creatinine is 1.3 with a GFR 47 which I feel is reassuring, alk phos is elevated at 154, nondetected negative initial troponin, BNP of 200, patient is negative for COVID flu and RSV. Patient signed out to Scarlet Spear NP pending review of CT imaging and disposition. report and care of patient received. labs and imaging reviewed. work up shows no acute findings to explain her symptoms. she has follow up with pcp on monday. she can return sooner for new or worsening problems. tick panel added and will be reviewed by outpatient team Lab Data Lab results reviewed: Yes I reviewed the patient's lab results. <Scarlet Spear NP - Last Filed: 10/07/22 17:51> Patient presenting to the emergency department for chief complaint of shortness of breath with some chest tightness. She also states right flank pain. She over the last couple days has also developed a cough that is keeping her up at night. Feels some chills but denies fever and also reports decreased urine output. Patient has past medical history of sleep apnea, migraines, chronic kidney disease. Physical exam shows right flank tenderness, clear lung sounds, stable vital signs, otherwise unremarkable exam. We will admit patient has an odd affect. We will check patient's labs, EKG, and perform chest x-ray. Given flank pain we will hold off on CT imaging until labs are returned given patient's report of chronic kidney disease and oliguria. Patient given acetaminophen for discomfort pending results Reviewed patient's labs and CBC is completely unremarkable, CMP shows slightly decreased potassium at 3.1 which we will orally replete, creatinine is 1.3 with a GFR 47 which I feel is reassuring, alk phos is elevated at 154, nondetected negative initial troponin, BNP of 200, patient is negative for COVID flu and RSV. report and care of patient received. labs and imaging reviewed. work up shows no acute findings to explain her symptoms. she has follow up with pcp on monday. she can return sooner for new or worsening problems. tick panel added and will be reviewed by outpatient team Medical Records Medical records reviewed: Yes I reviewed the patient's medical records. Imaging Data Radiologic Study: Imaging: CT Scan Radiologist's impression: PROCEDURE INFORMATION: Exam: CT Abdomen And Pelvis Without Contrast Exam date and time: 10/07/2022 4:16 PM Age: 57 years old Clinical indication: Abdominal pain; Patient HX: Right flank pain TECHNIQUE: Imaging protocol: Computed tomography of the abdomen and pelvis without contrast. COMPARISON: US ABDOMEN RENAL 03/23/2020 10:03 AM FINDINGS: Exam somewhat limited by motion. Lungs: Mild right basilar hypoventilatory change. Diaphragm: Right hemidiaphragm elevation. Liver: Hepatic steatosis. No mass. Gallbladder and bile ducts: The gallbladder is unremarkable. No biliary ductal dilatation. Pancreas: The pancreas is unremarkable. Spleen: The spleen is unremarkable. Adrenal glands: The adrenal glands are unremarkable. Kidneys and ureters: No hydronephrosis or nephrolithiasis.? Stomach and bowel: No evidence of bowel obstruction. No pericolonic inflammatory stranding. Appendix: No evidence of appendicitis. Intraperitoneal space: Unremarkable. No free air. No significant fluid collection. Vasculature: The aorta is unremarkable. Lymph nodes: Unremarkable. No enlarged lymph nodes. Urinary bladder: No focal wall thickening of the urinary bladder. Reproductive: Unremarkable as visualized. Bones/joints: Unremarkable. No acute fracture. Soft tissues: Unremarkable. IMPRESSION: No acute abdominopelvic process or detectable etiology for right flank pain Dictated and Authenticated by: Eda Taylor MD. Ordering:MIGUEL ANGEL Michaels MD HPI <Brando Ramirez AG EQUIPMENT FIELD SERVICE TECHNICIAN - Last Filed: 10/08/22 08:49> General Mode of arrival: ambulatory. Date/Time Provider Initiated Documentation: 10/07/22 11:52. Limitations to Documentation: no limitations. Information obtained by: patient and RN notes reviewed. History of Present Illness 57 year old F presents to the emergency department with the chief complaint of Shortness of breath, right flank pain, fatigue, described as moderate, Quality is described as aching, and is localized to the right (Flank). Patient reports radiation to back. Patient started experiencing this day(s) (4) and it has been constant. No relieving factors improve symptom(s), No exacerbating factors reported . Patient did receive the following treatments prior to arrival, none Related Data Home Medications Medication Instructions Recorded Confirmed docusate sodium 100 mg capsule 100 mg PO BID 04/30/13 10/07/22 (Colace) estradiol 1 mg tablet 1 mg PO DAILY 04/30/13 10/07/22 fluticasone propionate 110 2 puff inhalation BID 04/30/13 10/07/22 mcg/actuation HFA aerosol inhaler (Flovent HFA) levalbuterol tartrate 45 2 puff inhalation PRN PRN 04/30/13 12/12/14 mcg/actuation aerosol inhaler (Xopenex HFA) naproxen sodium 220 mg capsule 220 mg PO PRN PRN 04/30/13 12/22/14 pyridoxine (vitamin B6) 50 mg 50 mg PO DAILY 04/30/13 10/07/22 tablet (Vitamin B-6) ropinirole 1 mg tablet 1 mg PO DIRECTED 04/30/13 10/07/22 sumatriptan succinate 50 mg tablet 50 mg PO PRN PRN 04/30/13 10/07/22 (Imitrex) topiramate 100 mg tablet 125 mg PO BID 04/30/13 10/07/22 albuterol sulfate 90 mcg/actuation 2 puff inhalation Q4H PRN PRN 12/12/14 10/07/22 aerosol inhaler (ProAir HFA) venlafaxine 75 mg capsule,extended 100 mg PO BID 12/12/14 10/07/22 release 24 hr meclizine 25 mg tablet 25 mg PO TID PRN dizziness #30 tabs 06/29/18 10/07/22 amitriptyline 10 mg tablet 10 mg PO HS 10/07/22 10/07/22 cholecalciferol (vitamin D3) 25 50 mcg PO DAILY 10/07/22 10/07/22 mcg (1,000 unit) tablet clotrimazole 1 % topical cream 1 applic topical BID 10/07/22 10/07/22 furosemide 20 mg tablet 20 mg PO DAILY 10/07/22 10/07/22 minoxidil 5 % topical foam 1 applic topical DAILY 10/07/22 10/07/22 (Rogaine) multivitamin with minerals-folic 1 cap PO DAILY 10/07/22 10/07/22 133.3 mcg-biotin 1,666.7 mcg capsule (Hair,Skin and Nails (folic acid-biotin)) phentermine 15 mg capsule 15 mg PO QAM 10/07/22 10/07/22 polyethylene glycol 3350 17 17 g PO DAILY PRN 10/07/22 10/07/22 gram/dose oral powder (Miralax) potassium chloride 20 mEq 20 meq PO DAILY 10/07/22 10/07/22 tablet,extended release(part/cryst) propranolol 20 mg tablet 20 mg PO BID 10/07/22 10/07/22 triamcinolone acetonide 0.1 % 1 applic topical BID 10/07/22 10/07/22 topical cream Previous Rx's Medication Instructions Recorded meclizine 25 mg tablet 25 mg PO TID PRN dizziness #30 tabs 06/29/18 Allergies Allergy/AdvReac Type Severity Reaction Status Date / Time clindamycin Allergy Intermediate Skin Rash Unverified 10/07/22 11:59 Penicillins Allergy Intermediate Skin Rash Unverified 10/07/22 11:59 valdecoxib [From Bextra] Allergy Intermediate Skin Rash Unverified 10/07/22 11:59 tolmetin Allergy Swelling/Ed Unverified 10/07/22 11:59 abelino egg AdvReac Intermediate Unverified 10/07/22 12:00 lactose AdvReac Intermediate Unverified 10/07/22 11:59 mirtazapine [From Remeron] AdvReac Intermediate confusion, Unverified 10/07/22 11:59 disorientation General Stated Complaint: SOB GREG: 3 Review of Systems <Brando Ramirez NP - Last Filed: 10/08/22 08:49> Constitutional Constitutional: Denies chills, Reports fatigue, Denies fever(s), Denies headache(s) and Reports malaise ENT Ears, Nose, Mouth, and Throat: Denies headache(s) Cardiovascular Cardiovascular: Denies chest pain, Reports leg edema, Reports dyspnea and Reports dyspnea on exertion Respiratory Respiratory: Reports cough, Reports dyspnea and Reports dyspnea on exertion Gastrointestinal Gastrointestinal: Reports abdominal pain, Denies nausea and Denies vomiting Musculoskeletal Musculoskeletal: Denies back pain Integumentary/Breasts Skin/Breast: Denies erythema and Denies rash Neurologic Neurologic: Denies headache(s) Endocrine Endocrine: Reports fatigue PFSH <Brando Ramirez NP - Last Filed: 10/08/22 08:49> All Active Problems (Updated 10/07/22 @ 17:45 by Scarlet Spear NP) Viral illness (Acute) Headache (Acute) Sinus pressure (Acute) APOLLO (obstructive sleep apnea) (Chronic) Migraine with aura, intractable, with status migrainosus (Acute) Persistent migraine aura without cerebral infarction and with status migrainosus (Acute 03/11/13) Sensorineural hearing loss, bilateral (Chronic 03/19/13) Obstructive sleep apnea (adult) (pediatric) (Acute 03/11/13) Nasal fracture (Acute 12/22/14) Migraine aura, persistent, intractable, with status migrainosus (Acute 11/10/14) Hypertrophy of nasal turbinates (Acute 03/11/13) Acquired deviated nasal septum (Acute 03/11/13) Abnormal auditory perception (Acute 03/19/13) Medical History Abnormal auditory perception (04/04/14) Acquired deflected nasal septum (11/10/14) Hypertrophy, nasal, turbinate (11/10/14) Sensory hearing loss, bilateral (03/11/13) Social History Smoking/Tobacco Use Status: Never Smoking risk assessment performed?: Yes Alcohol Intake: never Drug use: Never Substance use type: does not use Do you feel safe at home: Yes Do you feel safe in your relationship?: Yes Exam <Brando Ramirez NP - Last Filed: 10/08/22 08:49> Const General: cooperative Orientation: alert, awake and oriented x3 Resp Effort & Inspection: normal respiratory effort and able to speak in complete sentences Auscultation: clear to auscultation bilaterally Cardio Rate: regular rate Rhythm: regular rhythm Heart Sounds: S1 normal and S2 normal GI Palpation: soft, not firm, no guarding, no masses, no pulsatile masses, not rigid and tender in the RUQ Auscultation: normal bowel sounds Back/Spine/Pelvis Back: CVA tenderness (right ) Neuro General: patient alert, patient awake, patient oriented x3, gait normal and moves all extremities Course <Brando Ramirez NP - Last Filed: 10/08/22 08:49> Vital Signs Vital signs: Vital Signs Temperature 36.4 C L 10/07/22 11:41 Pulse 66 10/07/22 11:41 Respiratory Rate 18 10/07/22 11:41 Blood Pressure 129/84 10/07/22 11:41 Pulse Oximetry 100 10/07/22 11:41 Temperature 36.4 C L 10/07/22 11:41 Temperature Source Skin 10/07/22 11:41 Pulse 66 10/07/22 11:41 Pulse 74 10/07/22 14:30 Respiratory Rate 20 10/07/22 13:08 Respiratory Effort Normal 10/07/22 13:08 Respiratory Depth Normal 10/07/22 13:08 Respiratory Pattern Normal 10/07/22 13:08 Blood Pressure 129/84 10/07/22 11:41 Blood Pressure Position Sitting 10/07/22 11:41 Pulse Oximetry 100 10/07/22 11:41 Oxygen Delivery Method Room Air 10/07/22 11:41 Oxygen Flow Rate 0 10/07/22 11:41 Pain Level 6 10/07/22 11:41 Comment has not taken any medications for her pain 10/07/22 11:41 Lab/Test Results Lab/Test Results: Laboratory Tests Range/Units 10/07/22 10/07/22 10/07/22 13:04 13:04 13:04 WBC (4.4-10.8) 10^3/uL 8.38 RBC (3.93-5.22) 10^6/uL 4.98 Hgb (11.2-15.7) g/dL 14.7 Hct (36.0-46.0) % 43.6 MCV (80-95) fL 88 MCH (27.0-33.0) pg 29.5 MCHC (32.0-36.0) % 33.7 RDW (11.7-14.6) % 14.1 Plt Count (130-400) 10^3/uL 239 MPV (8.0-11.0) fL 8.9 Immature Gran % 0.6 Neutrophils % 68.0 Lymphocytes % 24.1 Monocytes % 7.2 Eosinophils % 0.0 Basophils % 0.1 Nucleated RBC % (0.0-0.3) % 0.0 Absolute Neutrophils (1.2-6.7) 10^3/uL 5.70 Absolute Lymphocytes (1.2-3.4) 10^3/uL 2.02 Absolute Monocytes (0.1-0.8) 10^3/uL 0.60 Absolute Eosinophils (0.0-0.7) 10^3/uL 0.00 Absolute Basophils (0.0-0.2) 10^3/uL 0.01 PT (9.3-11.0) sec 9.9 INR (0.9-1.1) 1.0 APTT (21.5-31.9) sec 25.0 Sodium (136-145) mmol/L 142 Potassium (3.5-5.1) mmol/L 3.1 L Chloride (98-107) mmol/L 106 Carbon Dioxide (21.0-32.0) mmol/L 26.6 Anion Gap (3-11) mmol/L 9.4 BUN (7-18) mg/dL 11 Creatinine (0.55-1.02) mg/dL 1.3 H Est GFR (CKD-EPI 2020) (mL/min/1.73m2) 47.37 Glucose (74-106) mg/dL 92 Calcium (8.5-10.1) mg/dL 8.8 Magnesium (1.8-2.4) mg/dL 1.9 Total Bilirubin (0.2-1.0) mg/dL 0.4 AST (15-37) U/L 16 ALT (14-59) U/L 22 Alkaline Phosphatase (46-116) U/L 154 H Troponin I (<or=60) ng/L < 50 NT-Pro-B Natriuret Pep (<300) pg/mL 201 Total Protein (6.4-8.2) g/dL 7.6 Albumin (3.4-5.0) g/dL 3.5 COVID-19 Source SARS-CoV-2 (PCR) (Negative) Influenza Type A (PCR) (Negative) Influenza Type B (PCR) (Negative) RSV (PCR) (Negative) Range/Units 10/07/22 13:04 WBC (4.4-10.8) 10^3/uL RBC (3.93-5.22) 10^6/uL Hgb (11.2-15.7) g/dL Hct (36.0-46.0) % MCV (80-95) fL MCH (27.0-33.0) pg MCHC (32.0-36.0) % RDW (11.7-14.6) % Plt Count (130-400) 10^3/uL MPV (8.0-11.0) fL Immature Gran % Neutrophils % Lymphocytes % Monocytes % Eosinophils % Basophils % Nucleated RBC % (0.0-0.3) % Absolute Neutrophils (1.2-6.7) 10^3/uL Absolute Lymphocytes (1.2-3.4) 10^3/uL Absolute Monocytes (0.1-0.8) 10^3/uL Absolute Eosinophils (0.0-0.7) 10^3/uL Absolute Basophils (0.0-0.2) 10^3/uL PT (9.3-11.0) sec INR (0.9-1.1) APTT (21.5-31.9) sec Sodium (136-145) mmol/L Potassium (3.5-5.1) mmol/L Chloride (98-107) mmol/L Carbon Dioxide (21.0-32.0) mmol/L Anion Gap (3-11) mmol/L BUN (7-18) mg/dL Creatinine (0.55-1.02) mg/dL Est GFR (CKD-EPI 2020) (mL/min/1.73m2) Glucose (74-106) mg/dL Calcium (8.5-10.1) mg/dL Magnesium (1.8-2.4) mg/dL Total Bilirubin (0.2-1.0) mg/dL AST (15-37) U/L ALT (14-59) U/L Alkaline Phosphatase (46-116) U/L Troponin I (<or=60) ng/L NT-Pro-B Natriuret Pep (<300) pg/mL Total Protein (6.4-8.2) g/dL Albumin (3.4-5.0) g/dL COVID-19 Source Nasopharynx SARS-CoV-2 (PCR) (Negative) Negative Influenza Type A (PCR) (Negative) Negative Influenza Type B (PCR) (Negative) Negative RSV (PCR) (Negative) Negative Sign Out <Brando Ramirez NP - Last Filed: 10/08/22 08:49> Sign Out Data: Sign Out Comment: Patient pending disposition for right flank pain and shortness of breath. Work-up so far nondiagnostic with pending CT imaging Last updated by Brando Ramirez NP at 10/07/22 16:09
[2022-10-07] MEDS: ACETAMINOPHEN 1,000 MG/100 ML BTL 400 MG IVPB (15:31)
[2022-10-07] MEDS: Potassium Chloride 20 MEQ TABCR 40 MEQ PO (15:33)
[2022-10-07] MEDS: Potassium Chloride 20 MEQ TABCR (15:38)
[2022-10-07] MEDS: Ondansetron 4 MG/2 ML VIAL IVP (16:30)
[2022-10-07 17:10] LABS: Troponin I < 50 ng/L (<or=60)
--- NOTE | 2022-10-07 17:10 | DI.VRAD_ITS ---
PROCEDURE INFORMATION: Exam: CT Abdomen And Pelvis Without Contrast Exam date and time: 10/07/2022 4:16 PM Age: 57 years old Clinical indication: Abdominal pain; Patient HX: Right flank pain TECHNIQUE: Imaging protocol: Computed tomography of the abdomen and pelvis without contrast. COMPARISON: US ABDOMEN RENAL 03/23/2020 10:03 AM FINDINGS: Exam somewhat limited by motion. Lungs: Mild right basilar hypoventilatory change. Diaphragm: Right hemidiaphragm elevation. Liver: Hepatic steatosis. No mass. Gallbladder and bile ducts: The gallbladder is unremarkable. No biliary ductal dilatation. Pancreas: The pancreas is unremarkable. Spleen: The spleen is unremarkable. Adrenal glands: The adrenal glands are unremarkable. Kidneys and ureters: No hydronephrosis or nephrolithiasis. Stomach and bowel: No evidence of bowel obstruction. No pericolonic inflammatory stranding. Appendix: No evidence of appendicitis. Intraperitoneal space: Unremarkable. No free air. No significant fluid collection. Vasculature: The aorta is unremarkable. Lymph nodes: Unremarkable. No enlarged lymph nodes. Urinary bladder: No focal wall thickening of the urinary bladder. Reproductive: Unremarkable as visualized. Bones/joints: Unremarkable. No acute fracture. Soft tissues: Unremarkable. IMPRESSION: No acute abdominopelvic process or detectable etiology for right flank pain Dictated and Authenticated by: Eda Taylor MD. Ordering:MIGUEL ANGEL Michaels MD
== END 2022-10-07 18:08 | disposition home or self-care (01) ==
PROVIDERS: Nurse Practitioner Family; Emergency Provider Nurse Practitioner Acute Care
DX: B34.9 Viral infection, unspecified (principal)
CPT/HCPCS: 80053; 87637; 93005; 96374; 96375; 99285; 71046; 74176; 83735; 83880; 84484; 85025; 85610; 85730; 93010; 99284; J0131; J2405

== ENCOUNTER 2023-01-25 15:18 | Outpatient (REF) | payer MEDICARE, MEDICAID, SELFPAY ==
[2023-01-25 20:08] LABS: Abs Immature Grans 0.01 10^3/uL (0.0-0.06); Absolute Basophil Count 0.01 10^3/uL (0.0-0.2); Absolute Lymphocyte Count 1.88 10^3/uL (1.2-3.4); Absolute Monocyte Count 0.51 10^3/uL (0.1-0.8); Absolute Neutrophil Count 3.68 10^3/uL (1.2-6.7); Basophils % 0.2; HCT 44.1 % (36.0-46.0); HGB 14.9 g/dL (11.2-15.7); Immature Grans % 0.2; Lymphocytes % 30.9; MCH 29.9 pg (27.0-33.0); MCHC 33.8 % (32.0-36.0); MCV 88 fL (80-95); MPV 10.4 fL (8.0-11.0); Monocytes % 8.4; Neutrophils % 60.3; Platelet Count 262 10^3/uL (130-400); RBC 4.99 10^6/uL (3.93-5.22); RDW 13.4 % (11.7-14.6); RDW-SD 43.1 fL; WBC 6.09 10^3/uL (4.4-10.8)
[2023-01-25 20:25] LABS: Anion Gap 10.5 mmol/L (3-11); BUN 14 mg/dL (7-18); CO2 25.5 mmol/L (21.0-32.0); CREATININE 1.4 mg/dL (0.55-1.02); Calcium 9.2 mg/dL (8.5-10.1); Calculated LDL 80 mg/dL (<100); Chloride 107 mmol/L (98-107); Cholesterol 175 mg/dL (<200); Estimated GFR 43.34 (mL/min/1.73m2); Glucose 121 mg/dL (74-106); HDL Cholesterol 46 mg/dL (40-60); Potassium 3.8 mmol/L (3.5-5.1); Sodium 143 mmol/L (136-145); Triglyceride 245 mg/dL (<150)
== END 2023-01-25 15:19 | disposition home or self-care (01) ==
LOC: NCHCN 15:18
PROVIDERS: PCP Physician Assistant; Visit Provider Physician Assistant
DX: R60.9 Edema, unspecified (principal)
CPT/HCPCS: 80048; 80061; 85025

== ENCOUNTER → 2023-03-10 00:40 | Outpatient (CLI) | payer MEDICARE, MEDICAID, SELFPAY ==
--- NOTE | 2023-03-10 | DI.MAMMO_ITS ---
Exam(s) MAMMO SCREENING EXAM: MAMMO SCREENING CLINICAL HISTORY: SCREENING, Z12.31 TECHNIQUE: Mammograms were interpreted according to the usual protocol including computer analysis w [employer] CAD system, tomosynthesis and C-view imaging. COMPARISON: No exams were available for comparison FINDINGS: The breasts are composed of scattered fibroglandular densities, Breast Density category B. Left breast: No suspicious masses or suspicious microcalcifications are seen in the left breast. No skin thickening or abnormal axillary lymph nodes are seen. There has been no significant change from prior exams. Right breast: Biopsy marker clip in the upper outer quadrant. Lobulated area of nodularity in the maria isabel tral, inferior right breast 3 cm posterior to the nipple. Associated calcifications. The compression views and ultrasound are requested for further evaluation. No skin thickening or abnormal axillary ly mph nodes are seen.. IMPRESSION: BI-RADS Category 0 - Assessment Incomplete: Need additional imaging evaluation . Breast Density - Category B, scattered fibroglandular densities. A negative radiographic report should not delay biopsy if a dominant or clinically suspicious mass is present. Up to ten percent of cancers are not identified on mammography. A negative report may reinforce clinical impression. Adenosis and dense breasts may obscure an underlying neoplasm. False positive reports average 6 to 10%. Patient will receive a letter notifying them of these results.
--- NOTE | 2023-03-10 10:20 | DI.RAD_ITS ---
Exam(s) RF BARIUM SWALLOW EXAM: RF BARIUM SWALLOW CLINICAL HISTORY: FEELING OF LUMP IN THROAT,R09.89 TECHNIQUE: 2D and realtime digital imaging was performed. CONTRAST MATERIAL: Thick and thin barium and barium tablet were administered. COMPARISON: CR XR CHEST 2V PA LATERAL from 10/07/2022 FINDINGS: Exam is limited. Patient was unable to tolerate drinking multiple swallows of barium, gagging. The PA and lateral chest films show normal heart size and clear lung edge. The lateral precinct police sergeant view of the neck is unremarkable. Esophagus: No evidence of aspiration.. No visible mucosal erosions. No visible fold thickening. No mass is visible. Nostricture. Motility: There is a normal primary stripping wave. No tertiary contractions were noted. There is no visible hiatal hernia. Barium tablet passed into the stomach without delay. IMPRESSION: Limited exam. No evidence of stricture. RADIATION DOSE DELIVERED: cary Mari=14.0 mGy
[2023-03-10] MEDS: Simethicone/Sod Bicarb/Cit Ac, 4 gram PACKET 1 PACKET PO (10:23)
[2023-03-10] MEDS: Barium Sulfate 700 MG TAB PO (10:24)
[2023-03-10] MEDS: Barium Sulfate 60% W/V 355 ML BTL PO (10:26)
[2023-03-10] MEDS: Barium Sulfate 98% W/W 140 ML BTL PO (10:27)
== END ==
PROVIDERS: PCP Physician Assistant; Visit Provider Physician Assistant
DX: Z12.31 Encounter for screening mammogram for malignant neoplasm of breast (principal); R92.2 Inconclusive mammogram; R09.89 Other specified symptoms and signs involving the circulatory and respiratory systems
CPT/HCPCS: 77063; 77067; 74221; J3490

== ENCOUNTER → 2023-03-15 00:39 | Outpatient (CLI) | payer MEDICARE, MEDICAID, SELFPAY ==
--- NOTE | 2023-03-15 | DI.US_ITS ---
Exam(s) MG MAMMO SCREEN CALL BACK UNI US BREAST RT COMPLETE EXAM: MG MAMMO SCREEN CALL BACK UNI and U/S breast RT complete CLINICAL HISTORY: F/U MAMMO, LOBULATED AREA NODULARITY INF RT BREAST,R92.8. TECHNIQUE: Craniocaudal and mediolateral oblique Full Field Digital Mammography views of the right b reast with Computer Aided Diagnosis followed by Tomosynthesis and right breast ultrasound. COMPARISON: Comparison is made with prior examinations. FINDINGS: Mammography/Tomosynthesis: Masses/Architectural Distortion: There is again seen a lobulated 6 mm nodule at the 6 o'clock positio n of the right breast which has not been present on the prior examinations. There are associated niyah rocalcifications. No area of architectural distortion is seen. Microcalcifictions: Please see above under masses/architectural distortion. Skin Thickening/Nipple Retraction: None. Complete right breast US: All 4 quadrants of the right breast were evaluated sonographically includin g the right axilla and right retroareolar region. Echotexture: Normal appearance of the glandular tissue. Shadowing: No suspicious foci. Cyst: There appear to be a few CIS at the 6 o'clock position 1 cm from the nipple. This does not def initely correspond to the mammographic abnormality. There is a small cyst at the 7 o'clock position of the right breast 4 cm from the nipple measuring 4 mm. Solid lesions: None seen. Ductal dilation: None. IMPRESSION: 1. New 6 mm nodule at the 6 o'clock position of the right breast with associated microcalcifications. 2. This nodule should be biopsied for further evaluation. 3. Findings were discussed with the patient on the date of the examination. 4. Findings were discussed with RADHA Novak from the office of Dr. Krishnamurthy on 03/15/2023. BI-RADS Category 4 - Suspicious Abnormality: Biopsy should be considered Breast Density - Category B - Scattered areas of fibroglandular density Breast density category C or D implies that the patient has dense breast tissue. Dense breast tissue is very common and is not abnormal but dense breast tissue can make it harder to find cancer on a ma mmogram. Also, dense breast tissue may increase their breast cancer risk. This information about the result of the mammogram report was provided to the patient to raise their awareness. Use this report when you speak with the patient about their risks for breast cancer, which includes their family hist ory. At that time, you may recommend for more screening tests (Ultrasound or MRI) as they might be us eful based on their risk. A negative radiographic report should not delay biopsy if a dominant or clinically suspicious mass is present. Up to ten percent of cancers are not identified on mammography. A negative report may reinforce clinical impression. Adenosis and dense breasts may obscure an underlying neoplasm. False positive reports average 6 to 10%. Patient will receive a letter notifying them of these results.
== END ==
PROVIDERS: PCP Physician Assistant; Visit Provider Physician Assistant
DX: Z12.31 Encounter for screening mammogram for malignant neoplasm of breast (principal); N63.11 Unspecified lump in the right breast, upper outer quadrant
CPT/HCPCS: 76642; 77063; 77067

== ENCOUNTER 2023-07-22 12:44 | Emergency (ER) | payer MEDICARE, MEDICAID, SELFPAY ==
[2023-07-22 12:57] VITALS: BP 145/71; PULSE 70; RESP 18; TEMP 36.4; O2SAT 99
[2023-07-22 13:38] LABS: Abs Immature Grans 0.02 10^3/uL (0.0-0.06); Absolute Lymphocyte Count 1.79 10^3/uL (1.2-3.4); Absolute Monocyte Count 0.35 10^3/uL (0.1-0.8); Absolute Neutrophil Count 2.89 10^3/uL (1.2-6.7); HCT 43.8 % (36.0-46.0); HGB 14.7 g/dL (11.2-15.7); Immature Grans % 0.4 %; Lymphocytes % 35.4 %; MCH 29.9 pg (27.0-33.0); MCHC 33.6 % (32.0-36.0); MCV 89 fL (80-95); MPV 10.3 fL (8.0-11.0); Monocytes % 6.9 %; Neutrophils % 57.3 %; Platelet Count 213 10^3/uL (130-400); RBC 4.91 10^6/uL (3.93-5.22); RDW 12.4 % (11.7-14.6); RDW-SD 40.9 fL; WBC 5.05 10^3/uL (4.4-10.8)
[2023-07-22 13:40] VITALS: PULSE 58; RESP 14; O2SAT 98
--- NOTE | 2023-07-22 14:13 | W.ED.GENAD ---
Discharge Plan Disposition Patient Disposition: Against Medical Advice Discharge Details Clinical Impression: Disturbance in speech, Unsteady gait Primary Care Provider: Jarad Krishnamurthy ED Provider: Shamir Goldman Home Meds and New Rx's Prescriptions: No Action ropinirole 1 MG tablet 1 mg PO HS Patient Comments: 2-3 hours prior to HS sumatriptan succinate [Imitrex] 50 MG tablet 50 mg PO PRN PRN estradiol 1 MG tablet 1 mg PO DAILY docusate sodium [Colace] 100 MG capsule 100 mg PO BID pyridoxine (vitamin B6) [Vitamin B-6] 50 MG tablet 100 mg PO DAILY topiramate 100 MG tablet 125 mg PO BID naproxen sodium 220 MG capsule 220 mg PO PRN PRN fluticasone propionate [Flovent HFA] 120 PUFF HFA aerosol inhaler 2 puff Inhalation BID levalbuterol tartrate [Xopenex HFA] 200 PUFF HFA aerosol inhaler 2 puff Inhalation PRN PRN venlafaxine 75 MG capsule,extended release 24hr 100 mg PO BID albuterol sulfate [ProAir HFA] 200 PUFF HFA aerosol inhaler 2 puff Inhalation Q4H PRN PRN cholecalciferol (vitamin D3) 25 mcg (1,000 unit) Tablet 50 mcg PO DAILY potassium chloride 20 mEq tablet,ER particles/crystals 20 meq PO DAILY Patient Comments: Take 1 capsule by mouth once a day furosemide 20 mg tablet 20 mg PO DAILY propranolol 20 mg tablet 20 mg PO BID triamcinolone acetonide 0.1 % cream 1 applic TOPICAL BID Patient Comments: 1 a small amount to affected area twice a day Apply for no longer than 10 to 14 days amitriptyline 10 mg tablet 10 mg PO HS phentermine 15 mg Capsule 15 mg PO QAM Hair,Skin and Nails(FA-biotin) 133.3 mcg- 1,666.7 mcg capsule 1 cap PO DAILY clotrimazole 1 % Cream 1 applic TOPICAL BID polyethylene glycol 3350 [Miralax] 17 gram/dose Powder 17 g PO DAILY PRN ketoconazole 2 % cream 1 applic TOPICAL DAILY Mynephrocaps 1 mg capsule 1 cap PO DAILY oxycodone 5 mg tablet 5 mg PO Q4H PRN Patient Comments: TAKE ONE TABLET BY MOUTH EVERY 4 HOURS budesonide-formoterol [Breyna] 160-4.5 mcg/actuation HFA aerosol inhaler 2 inh inhalation BID clobetasol 0.05 % ointment 1 applic topical BID Voltaren Arthritis Pain topical DIRECTED lisdexamfetamine [Vyvanse] 20 mg capsule 10 mg PO DAILY bupropion HCl [Wellbutrin SR] 150 mg tablet sustained-release 12 hr 150 mg PO DAILY meclizine 25 mg tablet 25 mg PO TID PRN (Reason: dizziness) Qty: 30 0RF Discharge Instructions Instructions: Against Medical Advice (ED) Additional Instructions: You were seen today for confusion, abnormal speech, abnormal gait and chest pain. There is concern that you may be having a stroke or other acute neurologic emergency. It was recommended that you be hospitalized for further diagnostic workup including MRI of the brain and EEG. You have declined this recommendation and wished to leave against medical advice. Please take your medications as prescribed and follow-up with your doctor as soon as possible. Please take aspirin 81 mg daily. Return to the emergency department at any time for further workup and treatment as recommended. Referrals: [facility] [Provider Group] Jarad Krishnamurthy [Primary Care Provider] - Discharge Data Discharge Date/Time-TO BE ENTERED AT DEPARTURE: 07/22/23 17:55 HPI General Mode of arrival: ambulatory. Date/Time Provider Initiated Documentation: 07/22/23 13:01. Limitations to Documentation: no limitations. Information obtained by: patient. HPI Narrative: 57-year-old female with multiple medical problems including history of migraines, breast cancer status post recent mastectomy, borderline personality, conversion disorder, sent by home health and PCP with concern for altered speech. Patient notes stuttering speech that started this morning upon waking. She states her speech was normal last night at 11 PM prior to bed. She also notes unsteady gait and confusion. She specifically notes she cannot remember her date of . She states her brain feels fuzzy. She denies headache. Patient does also note some right upper chest pain that she noticed earlier this morning. She denies shortness of breath. Patient did recently start Vyvanse. Related Data Home Medications Medication Instructions Recorded Confirmed docusate sodium 100 mg capsule 100 mg PO BID 04/30/13 07/22/23 (Colace) estradiol 1 mg tablet 1 mg PO DAILY 04/30/13 10/07/22 fluticasone propionate 110 2 puff inhalation BID 04/30/13 10/07/22 mcg/actuation HFA aerosol inhaler (Flovent HFA) levalbuterol tartrate 45 2 puff inhalation PRN PRN 04/30/13 12/12/14 mcg/actuation aerosol inhaler (Xopenex HFA) naproxen sodium 220 mg capsule 220 mg PO PRN PRN 04/30/13 12/22/14 pyridoxine (vitamin B6) 50 mg 100 mg PO DAILY 04/30/13 07/22/23 tablet (Vitamin B-6) ropinirole 1 mg tablet 1 mg PO HS 04/30/13 07/22/23 sumatriptan succinate 50 mg tablet 50 mg PO PRN PRN 04/30/13 07/22/23 (Imitrex) topiramate 100 mg tablet 125 mg PO BID 04/30/13 07/22/23 albuterol sulfate 90 mcg/actuation 2 puff inhalation Q4H PRN PRN 12/12/14 10/07/22 aerosol inhaler (ProAir HFA) venlafaxine 75 mg capsule,extended 100 mg PO BID 12/12/14 07/22/23 release 24 hr meclizine 25 mg tablet 25 mg PO TID PRN dizziness #30 tabs 06/29/18 07/22/23 amitriptyline 10 mg tablet 10 mg PO HS 10/07/22 07/22/23 cholecalciferol (vitamin D3) 25 50 mcg PO DAILY 10/07/22 07/22/23 mcg (1,000 unit) tablet clotrimazole 1 % topical cream 1 applic topical BID 10/07/22 10/07/22 furosemide 20 mg tablet 20 mg PO DAILY 10/07/22 07/22/23 multivitamin with minerals-folic 1 cap PO DAILY 10/07/22 10/07/22 133.3 mcg-biotin 1,666.7 mcg capsule (Hair,Skin and Nails (folic acid-biotin)) phentermine 15 mg capsule 15 mg PO QAM 10/07/22 10/07/22 polyethylene glycol 3350 17 17 g PO DAILY PRN 10/07/22 10/07/22 gram/dose oral powder (Miralax) potassium chloride 20 mEq 20 meq PO DAILY 10/07/22 07/22/23 tablet,extended release(part/cryst) propranolol 20 mg tablet 20 mg PO BID 10/07/22 07/22/23 triamcinolone acetonide 0.1 % 1 applic topical BID 10/07/22 10/07/22 topical cream Voltaren Arthritis Pain topical DIRECTED 07/22/23 budesonide-formoterol HFA 160 2 inh inhalation BID 07/22/23 07/22/23 mcg-4.5 mcg/actuation aerosol inhaler (Breyna) bupropion HCl 150 mg tablet,12 hr 150 mg PO DAILY 07/22/23 07/22/23 sustained-release (Wellbutrin SR) clobetasol 0.05 % topical ointment 1 applic topical BID 07/22/23 07/22/23 ketoconazole 2 % topical cream 1 applic topical DAILY 07/22/23 07/22/23 lisdexamfetamine 20 mg capsule 10 mg PO DAILY 07/22/23 07/22/23 (Vyvanse) oxycodone 5 mg tablet 5 mg PO Q4H PRN 07/22/23 07/22/23 vitamin B complex and vitamin C 1 cap PO DAILY 07/22/23 07/22/23 no.20-folic acid 1 mg capsule (Mynephrocaps) Previous Rx's Medication Instructions Recorded meclizine 25 mg tablet 25 mg PO TID PRN dizziness #30 tabs 06/29/18 Allergies Allergy/AdvReac Type Severity Reaction Status Date / Time clindamycin Allergy Intermediate Skin Rash Unverified 07/22/23 13:10 Penicillins Allergy Intermediate Skin Rash Unverified 07/22/23 13:10 valdecoxib [From Bextra] Allergy Intermediate Skin Rash Unverified 07/22/23 13:10 tolmetin Allergy Swelling/Ed Unverified 07/22/23 13:10 abelino egg AdvReac Intermediate Other (See Unverified 07/22/23 13:10 Comment) lactose AdvReac Intermediate Other (See Unverified 07/22/23 13:10 Comment) mirtazapine [From Remeron] AdvReac Intermediate confusion, Unverified 07/22/23 13:10 disorientation General Stated Complaint: CVA/TIA GREG: 2 Review of Systems Narrative: ROS limited secondary to poor historian Exam Const General: cooperative and no acute distress Orientation: alert and awake Limitations: altered mental status HENMT Head: normocephalic and atraumatic Mouth: moist mucous membranes Eyes Conjunctivae: normal conjunctivae Sclera: normal sclerae EOM: EOM intact bilaterally Resp Auscultation: clear to auscultation bilaterally, no rales, no rhonchi and no wheezes Cardio Rate: regular rate and not tachycardic Rhythm: regular rhythm GI Palpation: soft, not firm, no guarding, no masses, not rigid and nontender Skin General skin exam: no rashes or lesions noted Neuro General: patient alert, patient awake and tone normal Cognition: abnormal cognition Speech: abnormal speech stuttering Gait: staggering Sensory Exam: no sensory deficits noted Other: patient has difficulty participating in neuro exam, she is able to Sandy; wood room hand strength seems diminished bilaterally, she lifts her legs minimally off the bed Extrem General: no edema Psych Appearance: grossly normal Mental Status: other (anxious) Mood: other (anxious) Thought Content: suicidality Course Vital Signs Vital signs: Vital Signs Temperature 36.4 C L 07/22/23 12:57 Pulse 70 07/22/23 12:57 Respiratory Rate 18 07/22/23 12:57 Blood Pressure 145/71 H 07/22/23 12:57 Pulse Oximetry 99 07/22/23 12:57 Temperature 36.4 C L 07/22/23 12:57 Temperature Source Skin 07/22/23 12:57 Pulse 58 L 07/22/23 13:40 Respiratory Rate 14 07/22/23 13:40 Respiratory Effort Normal 07/22/23 13:21 Respiratory Depth Normal 07/22/23 13:21 Respiratory Pattern Normal 07/22/23 13:21 Blood Pressure 145/71 H 07/22/23 12:57 Blood Pressure Position Sitting 07/22/23 12:57 Pulse Oximetry 98 07/22/23 13:40 Oxygen Delivery Method Room Air 07/22/23 13:40 Oxygen Flow Rate 0 07/22/23 13:40 Pain Level 8 07/22/23 12:57 Comment pain to right shoulder and down arm 07/22/23 12:57 Lab/Test Results Lab/Test Results: Laboratory Tests Range/Units 07/22/23 13:10 WBC (4.4-10.8) 10^3/uL 5.05 RBC (3.93-5.22) 10^6/uL 4.91 Hgb (11.2-15.7) g/dL 14.7 Hct (36.0-46.0) % 43.8 MCV (80-95) fL 89 MCH (27.0-33.0) pg 29.9 MCHC (32.0-36.0) % 33.6 RDW (11.7-14.6) % 12.4 Plt Count (130-400) 10^3/uL 213 MPV (8.0-11.0) fL 10.3 Immature Gran % % 0.4 Neutrophils % % 57.3 Lymphocytes % % 35.4 Monocytes % % 6.9 Eosinophils % % 0.0 Basophils % % 0.0 Nucleated RBC % (0.0-0.3) % 0.0 Absolute Neutrophils (1.2-6.7) 10^3/uL 2.89 Absolute Lymphocytes (1.2-3.4) 10^3/uL 1.79 Absolute Monocytes (0.1-0.8) 10^3/uL 0.35 Absolute Eosinophils (0.0-0.7) 10^3/uL 0.00 Absolute Basophils (0.0-0.2) 10^3/uL 0.00 Sodium Cancelled Potassium Cancelled Chloride Cancelled Carbon Dioxide Cancelled Anion Gap Cancelled BUN Cancelled Creatinine Cancelled Est GFR (CKD-EPI 2020) Cancelled Glucose Cancelled Calcium Cancelled Magnesium Cancelled Total Bilirubin Cancelled AST Cancelled ALT Cancelled Alkaline Phosphatase Cancelled Troponin I Cancelled Total Protein Cancelled Albumin Cancelled Medical Decision Making 224p -- 57-year-old female with multiple medical problems including history of breast cancer status postmastectomy, borderline personality, conversion disorder, here with altered mental status, difficulty remembering facts including her date of , stuttering speech and unsteady gait since waking this AM. Patient also has right upper chest wall pain at prior surgical site. She has no shortness of breath. Patient is hemodynamically stable. She is afebrile. Unclear etiology for symptoms at this point. Consider metastatic brain lesion. Plan to obtain CT imaging. 320p --Labs reviewed and nondiagnostic. 349p --CTA of the head was interpreted by radiology: No large vessel stenosis or occlusion. No definite mass, mass effect or midline shift. CTA of the neck was interpreted by radiology: No stenosis or occlusion. Will obtain teleneuro consult. --Patient had a an episode of shaking that was observed by defence intelligence analyst Jarad. I entered room I had observed Jarad initiating a sternal rub. Patient immediately woke and was quite upset and in pain given recent prior surgery. Patient noted concern with injury to the surgical site. I examined site with nurse present and there was mild erythema to her sternum above her surgical incision sites. There was no new swelling, bruising, erythema, or wound dehiscence from surgical sites. I apologized to the patient for what had occurred and assured her that Jarad was not aware that she had had prior breast surgery. 445p -- Patient seen by teleneurology, I spoke with the teleneurologist, he is concerned for potential posterior CVA/TIA and recommends observation for EEG and MRI. We do not have MRI or EEG availbility today or tomorrow at [facility]. I have called [facility] [place] [facility] to request transfer to expedite work-up. 525p -- I had a discussion with the patient about my diagnostic/treatment plan. Patient understands my concerns. Patient declines plan and wishes to leave against medical advise. I reiterated my concerns to the patient and explained the risks of leaving prior to completion of workup and treatment. I specifically emphasized the possibility of life-threatening or lifestyle modifying disease that would not be appropriately treated if they leave. Patient verbalized understanding of my concerns and the potential for life threatening or lifestyle modifying disease. Patient has capacity to make informed decision. I again explained my concerns and urged the patient to stay for treatment as outlined. Patient continued to refuse. She specifically noted that she was upset about sternal rub that occurred earlier. I did apologize again for her experience. I asked the patient if she would be okay with defence intelligence analyst Jarad coming back in to apologize as I knew he was remorseful. She did allow for this and he apologized. The patient still wishes to leave against advice. I recommended that she follow-up with primary care physician FANY or return to the Emergency Department at any time for further treatment. Lab Data Lab results reviewed: Yes I reviewed the patient's lab results. Labs: Laboratory Tests Range/Units 07/22/23 07/22/23 13:10 13:46 WBC (4.4-10.8) 10^3/uL 5.05 RBC (3.93-5.22) 10^6/uL 4.91 Hgb (11.2-15.7) g/dL 14.7 Hct (36.0-46.0) % 43.8 MCV (80-95) fL 89 MCH (27.0-33.0) pg 29.9 MCHC (32.0-36.0) % 33.6 RDW (11.7-14.6) % 12.4 Plt Count (130-400) 10^3/uL 213 MPV (8.0-11.0) fL 10.3 Immature Gran % % 0.4 Neutrophils % % 57.3 Lymphocytes % % 35.4 Monocytes % % 6.9 Eosinophils % % 0.0 Basophils % % 0.0 Nucleated RBC % (0.0-0.3) % 0.0 Absolute Neutrophils (1.2-6.7) 10^3/uL 2.89 Absolute Lymphocytes (1.2-3.4) 10^3/uL 1.79 Absolute Monocytes (0.1-0.8) 10^3/uL 0.35 Absolute Eosinophils (0.0-0.7) 10^3/uL 0.00 Absolute Basophils (0.0-0.2) 10^3/uL 0.00 Sodium Cancelled 145 Potassium Cancelled 3.5 Chloride Cancelled 109 H Carbon Dioxide Cancelled 28.0 Anion Gap Cancelled 8.0 BUN Cancelled 24 H Creatinine Cancelled 1.3 H Est GFR (CKD-EPI 2020) Cancelled 47.37 Glucose Cancelled 108 H Calcium Cancelled 8.8 Magnesium Cancelled 1.9 Total Bilirubin Cancelled 0.4 AST Cancelled 14 L ALT Cancelled 25 Alkaline Phosphatase Cancelled 114 Troponin I Cancelled < 50 Total Protein Cancelled 7.0 Albumin Cancelled 3.3 L Quality:SDOH Health Related Social Needs: No Data to Display PFSH All Active Problems (Updated 07/22/23 @ 17:39 by Shamir Goldman MD) Unsteady gait (Acute) Disturbance in speech (Acute) Headache (Acute) Sinus pressure (Acute) APOLLO (obstructive sleep apnea) (Chronic) Migraine with aura, intractable, with status migrainosus (Acute) Persistent migraine aura without cerebral infarction and with status migrainosus (Acute 03/11/13) Sensorineural hearing loss, bilateral (Chronic 03/19/13) Obstructive sleep apnea (adult) (pediatric) (Acute 03/11/13) Nasal fracture (Acute 12/22/14) Migraine aura, persistent, intractable, with status migrainosus (Acute 11/10/14) Hypertrophy of nasal turbinates (Acute 03/11/13) Acquired deviated nasal septum (Acute 03/11/13) Abnormal auditory perception (Acute 03/19/13) Medical History Sensory hearing loss, bilateral (03/11/13) Hypertrophy, nasal, turbinate (11/10/14) Acquired deflected nasal septum (11/10/14) Abnormal auditory perception (04/04/14) Social History Smoking/Tobacco Use Status: Never Smoking risk assessment performed?: Yes Alcohol Intake: never Drug use: Never Substance use type: does not use Housing: house Do you feel safe at home: Yes Do you feel safe in your relationship?: Yes
[2023-07-22 14:21] LABS: ALT 25 U/L (14-59); AST 14 U/L (15-37); Albumin 3.3 g/dL (3.4-5.0); Alkaline Phosphatase 114 U/L (46-116); BUN 24 mg/dL (7-18); Bilirubin, Total 0.4 mg/dL (0.2-1.0); CREATININE 1.3 mg/dL (0.55-1.02); Calcium 8.8 mg/dL (8.5-10.1); Chloride 109 mmol/L (98-107); Estimated GFR 47.37 (mL/min/1.73m2); Glucose 108 mg/dL (74-106); Magnesium 1.9 mg/dL (1.8-2.4); Potassium 3.5 mmol/L (3.5-5.1); Sodium 145 mmol/L (136-145)
--- NOTE | 2023-07-22 14:30 | DI.CT_ITS ---
Exam(s) CT BRAIN NECK CTA EXAM: CT BRAIN NECK CTA CLINICAL HISTORY: unsteady gait, stuttering speech. TECHNIQUE: Imaging Protocol: Axial CT angiography was performed with multi-slice acquisition and mu lti-planar and/or 3D reconstructions. CONTRAST MATERIAL: Intravenous: Omnipaque 350 Contrast volume:structured data in ml COMPARISON: No exams were available for comparison FINDINGS: CTA Neck W: Aortic arch anatomy: The aortic arch anatomy is conventional and there is no significant stenosis at the origin of the great vessels off of the aortic arch. No intimal flap evident. Anterior circulation: Both common carotid arteries ascend with normal luminal diameters. At the level the carotid bulbs and proximal internal carotid arteries there is minimal if any signifi cant plaque and without hemodynamically significant stenosis evident. Posterior circulation: The right vertebral artery originates in conventional fashion off of the right subclavian artery. Th e left vertebral artery originates as an independent vessel off the aortic arch. There is no stenosi s at the origin of the vertebral arteries. Both vertebral arteries exhibit normal luminal diameters within the foramen transversarium but no evidence of vertebral artery thrombosis nor dissection. Both vertebral arteries contribute to the formation of the basilar artery at the skull base. CTA Brain W: Anterior circulation: Both internal carotid arteries are patent in the skull base-carotid canals as well as within the cave rnous sinuses. The supraclinoid aspects of the ICAs are patent. Both A1 segments are patent as are the anterior cer ebral arteries and there is no evidence of aneurysm at the level of the anterior communicating artery . Both middle cerebral arteries are patent with no evidence of significant stenosis nor intraluminal th rombus. There also no aneurysms of these vessels. Posterior circulation: The basilar artery ascends in the midline. Distally it gives off patent bilateral superior cerebella r arteries. Above this level the basilar artery terminates as patent bilateral posterior cerebral arteries. There is no evidence of aneurysm at the tip of the basilar artery nor elsewhere in the [id number] is. CT BRAIN: There is no evidence of intracranial hemorrhage, mass effect, or shift of midline structures. There are no extra-axial fluid collections. Ventricles are not enlarged or shifted. There are no ring enh ancing lesions in the brain and no abnormal meningeal enhancement. IMPRESSION: 1. Patent carotid arteries in the neck. No hemodynamically significant stenosis. 2. Patent vertebral arteries. 3. Patent intracranial arteries. Also no intracranial aneurysms nor evidence of vascular malformatio n. 4. No acute brain findings. No hemorrhage. No ring enhancing lesions in the brain. No abnormal men ingeal enhancement. RADIATION DOSE DELIVERED: 1,838.53mGy.cm Total DLP DATA REPOSITORY: All CT scans at this facility are submitted to the National Radiology Data Registry (NRDR) Dose Index Registry (DIR) with the [employer] ([employer]). RADIATION OPTIMIZATION: All CT scans at this facility use at least one of these dose optimization te chniques: automated exposure control; mA and/or kV adjustment per patient size (includes targeted exa ms where dose is matched to clinical indication); or iterative reconstruction.
[2023-07-22 14:32] LABS: Troponin I < 50 ng/L (< or =60)
[2023-07-22] MEDS: Normal Saline - Diluent 50 ML VIAL IJ (14:59)
[2023-07-22] MEDS: Omnipaque 350 MG/ML 100 ML BTL IJ (15:00)
--- NOTE | 2023-07-22 15:44 | DI.VRAD_ITS ---
PROCEDURE INFORMATION: Exam: CTA Head With Contrast, Arteriography Exam date and time: 07/22/2023 2:51 PM Age: 57 years old Clinical indication: Stroke-like symptoms; Speech disturbance TECHNIQUE: Imaging protocol: Computed tomographic angiography of the head with contrast. Exam focused on the arteries. 3D rendering (Not supervised by radiologist): MIP and/or 3D reconstructed images were created by the technologist. COMPARISON: CT HEAD WO 06/29/2018 3:53 PM FINDINGS: ANTERIOR CIRCULATION: Right internal carotid artery: Intracranial segment is patent with no significant stenosis. No aneurysm. Right middle cerebral artery: No occlusion or significant stenosis. No aneurysm. Right anterior cerebral artery: No occlusion or significant stenosis. No aneurysm. Left internal carotid artery: Intracranial segment is patent with no significant stenosis. No aneurysm. Left middle cerebral artery: No occlusion or significant stenosis. No aneurysm. Left anterior cerebral artery: No occlusion or significant stenosis. No aneurysm. POSTERIOR CIRCULATION: Right vertebral artery: No occlusion or significant stenosis. No aneurysm. Left vertebral artery: No occlusion or significant stenosis. No aneurysm. Basilar artery: No occlusion or significant stenosis. No aneurysm. Right posterior cerebral artery: No occlusion or significant stenosis. No aneurysm. Left posterior cerebral artery: No occlusion or significant stenosis. No aneurysm. Brain: No definite mass, mass effect, or midline shift. Cerebral ventricles: No ventriculomegaly. Bones/joints: Polyp or mucous retention cyst in the right maxillary. Soft tissues: Unremarkable. IMPRESSION: No large vessel stenosis or occlusion. PROCEDURE INFORMATION: Exam: CTA Neck With Contrast Exam date and time: 07/22/2023 2:51 PM Age: 57 years old Clinical indication: Stroke-like symptoms; Speech disturbance TECHNIQUE: Imaging protocol: Computed tomographic angiography of the neck with contrast. Exam focused on the cervical segments of the vasculature. 3D rendering (Not supervised by radiologist): MIP and/or 3D reconstructed images were created by the technologist. COMPARISON: RF BARIUM SWALLOW 03/10/2023 9:43 AM FINDINGS: Right common carotid artery: No stenosis. No dissection or occlusion. Right internal carotid artery: No stenosis of the extracranial segment. No dissection or occlusion. Right external carotid artery: No occlusion or stenosis of the origin. Left common carotid artery: No stenosis. No dissection or occlusion. Left internal carotid artery: No stenosis of the extracranial segment. No dissection or occlusion. Left external carotid artery: No occlusion or stenosis of the origin. Right vertebral artery: No stenosis. No dissection or occlusion. Left vertebral artery: No stenosis. No dissection or occlusion. Soft tissues: Normal. No significant soft tissue swelling. Bones/joints: No acute fracture. IMPRESSION: No stenosis or occlusion. REFERENCES: NASCET CRITERIA. The degree of stenosis in the cervical segment of the internal carotid artery is based on NASCET criteria. Normal is no stenosis. Mild is less than 50% stenosis. Moderate is 50-69% stenosis. Severe is 70% to 99% stenosis. Total occlusion is no detectable patent lumen. Dictated and Authenticated by: Kenzie Ochoa MD. Ordering:DONNIE Barksdale MD
[2023-07-22 15:50] VITALS: BP 152/52; PULSE 77; RESP 16; O2SAT 99
[2023-07-22 16:50] VITALS: BP 151/85; PULSE 60; RESP 16; O2SAT 96
[2023-07-22] MEDS: Acetaminophen 325 MG TAB PO (17:37)
[2023-07-22] MEDS: Ibuprofen 400 MG TAB PO (17:37)
[2023-07-22] MEDS: Aspirin 81 MG CHEW PO (17:59)
[2023-07-22 18:00] VITALS: BP 151/85; PULSE 60; RESP 16; TEMP 36.4; O2SAT 96
== END 2023-07-22 17:55 | disposition left against medical advice (07) ==
PROVIDERS: Emergency Provider Student in an Organized Health Care Education/Training Program; PCP Physician Assistant
DX: R47.81 Slurred speech (principal); R26.9 Unspecified abnormalities of gait and mobility; Z90.10 Acquired absence of unspecified breast and nipple; Z85.3 Personal history of malignant neoplasm of breast; Z53.29 Procedure and treatment not carried out because of patient's decision for other reasons
CPT/HCPCS: 36415; 70496; 70498; 80053; 99285; 83735; 84484; 85025; 99284; J3490

== ENCOUNTER 2024-03-18 15:45 | Outpatient (REF) | payer MEDICARE, MEDICAID, SELFPAY ==
[2024-03-18 15:37] LABS: HCT 47.1 % (36.0-46.0); HGB 15.5 g/dL (11.2-15.7); MCH 29.4 pg (27.0-33.0); MCHC 32.9 % (32.0-36.0); MCV 89 fL (80-95); Platelet Count 275 10^3/uL (130-400); RBC 5.27 10^6/uL (3.93-5.22); RDW 13.3 % (11.7-14.6); RDW-SD 43.6 fL; WBC 7.28 10^3/uL (4.4-10.8)
[2024-03-18 16:40] LABS: FREE T4 0.82 ng/dL (0.76-1.46); TSH 1.71 uIU/mL (0.36-3.74)
== END 2024-03-18 15:46 | disposition home or self-care (01) ==
LOC: NCHCN 15:45
PROVIDERS: PCP Physician Assistant; Visit Provider Physician Assistant
DX: Z13.1 Encounter for screening for diabetes mellitus (principal); R53.83 Other fatigue
CPT/HCPCS: 85027; 83036; 84439; 84443

== ENCOUNTER 2024-03-26 02:01 | Outpatient (CLI) | payer MEDICARE, MEDICAID, SELFPAY ==
--- NOTE | 2024-03-26 | DI.RAD_ITS ---
Exam(s) XR CHEST 2V PA LATERAL EXAM: XR CHEST 2V PA LATERAL CLINICAL HISTORY: Dyspnea on exertion, R06.09-other forms of dyspnea TECHNIQUE: 2D digital imaging was performed. Two views. COMPARISON: No exams were available for comparison FINDINGS: HEART: Normal size. Aorta: Not dilated. PULMONARY VASCULATURE: Normal. MEDIASTINUM: Unremarkable. LUNGS: Clear. PLEURAL SPACE: No pleural effusion or pneumothorax. BONE:Unremarkable for age. SOFT TISSUES: Bilateral mastectomy. IMPRESSION: No acute abnormality. DATA REPOSITORY: RADIATION DOSE DELIVERED:
== END 2024-03-26 02:21 ==
LOC: DI 02:01
PROVIDERS: PCP Physician Assistant; Visit Provider Physician Assistant
DX: R06.09 Other forms of dyspnea (principal)
CPT/HCPCS: 71046

== ENCOUNTER 2024-05-02 01:01 | Outpatient (CLI) | payer MEDICARE, MEDICAID, SELFPAY ==
--- NOTE | 2024-05-02 | DI.DEXA_ITS ---
Exam(s) XR DEXA BONE DENSITY W/WO MANUELA EXAM: XR DEXA BONE DENSITY W/WO MANUELA CLINICAL HISTORY: POSTMENOPAUSAL STATE, ASYMPTOMATIC, Z78.0, SCREENING TECHNIQUE: COMPARISON: No exams were available for comparison FINDINGS: Lateral Spine Image: Unremarkable. No compression deformities identified. Left hip: Total T-Score: -1.4 Total Z-Score: -0.4 T- and Z-scores: Findings are consistent with osteopenia. Lumbar Spine: Total T-Score: -0.6 Total Z-Score: 0.9 T- and Z-scores: Within normal limits. There is osteoporosis seen in the mid left forearm with a T-score of -2.5 and Z-score of -1.2. IMPRESSION: 1. No evidence of osteoporosis in the lumbar spine or left hip. 2. Osteoporosis is seen in the mid left forearm with a T-score of -2.5.
== END 2024-05-02 01:21 ==
PROVIDERS: PCP Physician Assistant; Visit Provider Physician Assistant
DX: Z78.0 Asymptomatic menopausal state (principal); M81.0 Age-related osteoporosis without current pathological fracture; Z13.820 Encounter for screening for osteoporosis
CPT/HCPCS: 77080

== ENCOUNTER 2024-05-22 18:00 | Emergency (ER) | payer MEDICARE, MEDICAID, SELFPAY ==
[2024-05-22] VITALS (9 sets, daily range): BP systolic 144–149; BP diastolic 71–78; PULSE 66–86; RESP 14–21; TEMP 36.6; O2SAT 94–100
--- NOTE | 2024-05-22 17:45 | RT.EKG_ITS ---
APPROVED REPORT Exam: Resting ECG Reason for Exam: Trauma Patient Location: E HR:76 bpm ECG Measurements Heart Rate 76 AXIS AZ 210 P 80 QRSd 98 QRS -42 QT 379 T -7 QTc 427 Conclusion Sinus rhythm...normal P axis, V-rate 60- 99 Multiple ventricular premature complexes...V complexes w/ short R-R intervls Aberrant conduction of SV complex(es)...aberrant shape, AZ 80-220 Prolonged AZ interval...AZ >210, V-rate 50- 90 Left anterior fascicular block...axis(240,-40), init forces inf Physician: No Stemi
[2024-05-22 18:44] LABS: Abs Immature Grans 0.02 10^3/uL (0.0-0.06); Absolute Basophil Count 0.01 10^3/uL (0.0-0.2); Absolute Lymphocyte Count 1.99 10^3/uL (1.2-3.4); Absolute Monocyte Count 0.51 10^3/uL (0.1-0.8); Absolute Neutrophil Count 3.02 10^3/uL (1.2-6.7); Basophils % 0.2 %; HCT 43.9 % (36.0-46.0); HGB 14.8 g/dL (11.2-15.7); Immature Grans % 0.4 %; Lymphocytes % 35.9 %; MCH 29.4 pg (27.0-33.0); MCHC 33.7 % (32.0-36.0); MCV 87 fL (80-95); Monocytes % 9.2 %; Neutrophils % 54.3 %; Platelet Count 213 10^3/uL (130-400); RBC 5.04 10^6/uL (3.93-5.22); RDW 13.2 % (11.7-14.6); RDW-SD 41.4 fL; WBC 5.55 10^3/uL (4.4-10.8)
[2024-05-22 18:57] LABS: PTT Activated 24.3 sec (20.6-30.2); Prothrombin Time 10.5 sec (9.1-11.1)
[2024-05-22 19:03] LABS: ALT 17 U/L (14-59); AST 19 U/L (15-37); Albumin 3.2 g/dL (3.4-5.0); Alkaline Phosphatase 164 U/L (46-116); Anion Gap 7.3 mmol/L (3-11); BUN 13 mg/dL (7-18); Bilirubin, Total 0.5 mg/dL (0.2-1.0); CO2 26.7 mmol/L (21.0-32.0); CREATININE 1.3 mg/dL (0.55-1.02); Calcium 9.3 mg/dL (8.5-10.1); Chloride 111 mmol/L (98-107); Estimated GFR 47.08 (mL/min/1.73m2); Glucose 102 mg/dL (74-106); Potassium 3.8 mmol/L (3.5-5.1); Sodium 145 mmol/L (136-145); Total Protein 7.2 g/dL (6.4-8.2); Troponin I 7 ng/L (<or=51)
[2024-05-22 19:13] LABS: ETHANOL BLOOD < 3.0 mg/dL (<10)
--- NOTE | 2024-05-22 19:18 | ED.GENADUL_ITS ---
Discharge Plan Disposition Patient Disposition: Home Condition: Good Discharge Details Clinical Impression: Fall, Acute neck sprain Primary Care Provider: Jarad Krishnamurthy ED Provider: Alirio Donaldson Home Meds and New Rx's Prescriptions: No Action venlafaxine 75 mg capsule,extended release 24hr 75 mg PO BID topiramate 100 mg tablet 125 mg PO BID propranolol 20 mg tablet 40 mg PO BID ropinirole 1 MG tablet 1 mg PO HS Patient Comments: 2-3 hours prior to HS sumatriptan succinate [Imitrex] 50 MG tablet 50 mg PO PRN PRN estradiol 1 MG tablet 1 mg PO DAILY docusate sodium [Colace] 100 MG capsule 100 mg PO BID pyridoxine (vitamin B6) [Vitamin B-6] 50 MG tablet 100 mg PO DAILY naproxen sodium 220 MG capsule 220 mg PO PRN PRN fluticasone propionate [Flovent HFA] 120 PUFF HFA aerosol inhaler 2 puff Inhalation BID levalbuterol tartrate [Xopenex HFA] 200 PUFF HFA aerosol inhaler 2 puff Inhalation PRN PRN albuterol sulfate [ProAir HFA] 200 PUFF HFA aerosol inhaler 2 puff Inhalation Q4H PRN PRN cholecalciferol (vitamin D3) 25 mcg (1,000 unit) Tablet 50 mcg PO DAILY potassium chloride 20 mEq tablet,ER particles/crystals 20 meq PO DAILY Patient Comments: Take 1 capsule by mouth once a day furosemide 20 mg tablet 20 mg PO DAILY triamcinolone acetonide 0.1 % cream 1 applic TOPICAL BID Patient Comments: 1 a small amount to affected area twice a day Apply for no longer than 10 to 14 days amitriptyline 10 mg tablet 10 mg PO HS phentermine 15 mg Capsule 15 mg PO QAM Hair,Skin and Nails(FA-biotin) 133.3 mcg- 1,666.7 mcg capsule 1 cap PO DAILY clotrimazole 1 % Cream 1 applic TOPICAL BID polyethylene glycol 3350 [Miralax] 17 gram/dose Powder 17 g PO DAILY PRN ketoconazole 2 % cream 1 applic TOPICAL DAILY Mynephrocaps 1 mg capsule 1 cap PO DAILY oxycodone 5 mg tablet 5 mg PO Q4H PRN Patient Comments: TAKE ONE TABLET BY MOUTH EVERY 4 HOURS budesonide-formoterol [Breyna] 160-4.5 mcg/actuation HFA aerosol inhaler 2 inh inhalation BID clobetasol 0.05 % ointment 1 applic topical BID lisdexamfetamine [Vyvanse] 20 mg capsule 10 mg PO DAILY bupropion HCl [Wellbutrin SR] 150 mg tablet sustained-release 12 hr 150 mg PO DAILY meclizine 25 mg tablet 25 mg PO TID PRN (Reason: dizziness) Qty: 30 0RF Discharge Instructions Instructions: Whiplash Additional Instructions: At this time your workup has returned with no significant abnormalities. There is no evidence of fracture, bleed, or stroke. Please drink plenty fluids and stay well-hydrated. We spoke with neurology at the [facility] and at this time it is felt that it would be best to continue your current medication regiment, and follow-up closely with your primary care provider tomorrow at your scheduled appointment. You should not drive, operate machinery, climb heights (such as a ladder), swim, or bathe alone or do anything else which could be dangerous if you would have another seizure. Please abide by this for the next 6 months or until cleared by a physician. If you notice any worsening of your symptoms, or any new symptoms such as vomiting, diarrhea, fever, chills, shortness of breath, chest pain, numbness, weakness, or fainting , please return immediately to the emergency department for reevaluation. Please follow up with your primary care provider as soon as possible for reassessment and reevaluation. As always, it was a pleasure participating in your medical care today. Referrals: Jarad Krishnamurthy [Primary Care Provider] - [facility] General Date/Time Provider Initiated Documentation: 05/22/24 18:08 . HPI Narrative: This is a 58-year-old female with a past medical history of obstructive sleep apnea, migraines, PTSD, irritable bowel syndrome, borderline personality disorder, nonepileptiform seizures, breast cancer with bilateral mastectomy, who presents today after fall and seizure. Patient states that she has a history of seizures. Review of records from Jarad Krishnamurthy at [facility] indicate that the patient does have history of recurrent pseudoseizure activity. No neurology notes were available in our records. No neurology records available at [facility]. Patient states that she has been on Lyrica for some time for this, but was recently taken off of this just a few days ago. After which she states she has been having seizures. She states that she has had 3 seizures today, 1 of which occurred while she was at the top of the stairs and she fell down 16 stairs. She had pain in her head neck chest abdomen pelvis and knees. EMS was called and she was brought to the ER for fur ther assessment. She currently admits to continued pain in all of those areas. She did urinate on herself during that initial episode. It was uncertain if it occurred before or after the fall though. Uncertain if there was a loss of consciousness associated with this. EMS reports that the patient did have another episode of a seizure during the ride in where she became borderline unresponsive, however with retraction of her eyelids she did track the light that they were using. By the time the patient arrived she was no longer having any seizure activity or other altered mental status components. Currently the patient admits to pain in all the locations. She denies any other complaints. She denies any vision changes numbness or tingling. No other modifying factors. Related Data Home Medications ?Medication ?Instructions ?Recorded ?Confirmed docusate sodium 100 mg capsule 100 mg PO BID 04/30/13 05/22/24 (Colace) estradiol 1 mg tablet 1 mg PO DAILY 04/30/13 05/22/24 fluticasone propionate 110 2 puff inhalation BID 04/30/13 05/22/24 mcg/actuation HFA aerosol inhaler (Flovent HFA) levalbuterol tartrate 45 2 puff inhalation PRN PRN 04/30/13 05/22/24 mcg/actuation aerosol inhaler (Xopenex HFA) naproxen sodium 220 mg capsule 220 mg PO PRN PRN 04/30/13 05/22/24 pyridoxine (vitamin B6) 50 mg 100 mg PO DAILY 04/30/13 05/22/24 tablet (Vitamin B-6) ropinirole 1 mg tablet 1 mg PO HS 04/30/13 05/22/24 sumatriptan succinate 50 mg tablet 50 mg PO PRN PRN 04/30/13 05/22/24 (Imitrex) albuterol sulfate 90 mcg/actuation 2 puff inhalation Q4H PRN PRN 12/12/14 05/22/24 aerosol inhaler (ProAir HFA) meclizine 25 mg tablet 25 mg PO TID PRN dizziness #30 tabs 06/29/18 05/22/24 amitriptyline 10 mg tablet 10 mg PO HS 10/07/22 05/22/24 cholecalciferol (vitamin D3) 25 50 mcg PO DAILY 10/07/22 05/22/24 mcg (1,000 unit) tablet clotrimazole 1 % topical cream 1 applic topical BID 10/07/22 05/22/24 furosemide 20 mg tablet 20 mg PO DAILY 10/07/22 05/22/24 multivitamin with minerals-folic 1 cap PO DAILY 10/07/22 05/22/24 133.3 mcg-biotin 1,666.7 mcg capsule (Hair,Skin and Nails (folic acid-biotin)) phentermine 15 mg capsule 15 mg PO QAM 10/07/22 05/22/24 polyethylene glycol 3350 17 17 g PO DAILY PRN 10/07/22 05/22/24 gram/dose oral powder (Miralax) potassium chloride 20 mEq 20 meq PO DAILY 10/07/22 05/22/24 tablet,extended release(part/cryst) triamcinolone acetonide 0.1 % 1 applic topical BID 10/07/22 05/22/24 topical cream budesonide-formoterol HFA 160 2 inh inhalation BID 07/22/23 05/22/24 mcg-4.5 mcg/actuation aerosol inhaler (Breyna) bupropion HCl 150 mg tablet,12 hr 150 mg PO DAILY 07/22/23 05/22/24 sustained-release (Wellbutrin SR) clobetasol 0.05 % topical ointment 1 applic topical BID 07/22/23 05/22/24 ketoconazole 2 % topical cream 1 applic topical DAILY 07/22/23 05/22/24 lisdexamfetamine 20 mg capsule 10 mg PO DAILY 07/22/23 05/22/24 (Vyvanse) oxycodone 5 mg tablet 5 mg PO Q4H PRN 07/22/23 05/22/24 vitamin B complex and vitamin C 1 cap PO DAILY 07/22/23 05/22/24 no.20-folic acid 1 mg capsule (Mynephrocaps) propranolol 20 mg tablet 40 mg PO BID 02/02/24 05/22/24 topiramate 100 mg tablet 125 mg PO BID 02/02/24 05/22/24 venlafaxine 75 mg capsule,extended 75 mg PO BID 02/02/24 05/22/24 release 24 hr Previous Rx's ?Medication ?Instructions ?Recorded meclizine 25 mg tablet 25 mg PO TID PRN dizziness #30 tabs 06/29/18 Allergies Allergy/AdvReac Type Severity Reaction Status Date / Time clindamycin Allergy Intermediate Skin Rash Verified 05/22/24 18:06 Penicillins Allergy Intermediate Skin Rash Verified 05/22/24 18:06 valdecoxib (From Bextra) Allergy Intermediate Skin Rash Verified 05/22/24 18:06 tolmetin Allergy Swelling/Ed Verified 05/22/24 18:06 abelino egg AdvReac Intermediate Other (See Verified 05/22/24 18:06 Comment) lactose AdvReac Intermediate Other (See Verified 05/22/24 18:06 Comment) mirtazapine (From Remeron) AdvReac Intermediate confusion, Verified 05/22/24 18:06 disorientation General Stated Complaint: Trauma GREG: 2 Exam Narrative Exam Narrative: 1.Const: Well-nourished, Well-developed, appearing stated age 2.Eyes: PERRL, no conjunctival injection, and symmetrical lids. 3.ENT: Atraumatic external nose and ears. Moist MM. Neck: Symmetric, trachea midline, No thyromegaly. There is no evidence of raccoon eyes, lorenzo sign, CSF rhinorrhea, mastoid tenderness, cranial crepitus, hemotympanum, exophthalmos, or hyphema. Patient demonstrates intact dentition with no signs of tooth avulsion or fracture, no signs of jaw deformity, no evidence of a LeFort's fracture, with an intact palate, nose and orbital region. There is no evidence of a nasal septal hematoma. No proptosis. Jaw closes symmetrically. Airway is clear. 4.CVS: +S1/S2, Peripheral pulses 2+ and equal in all extremities. Brisk capillary refill in all extremities. 5.RESP: Unlabored respiratory effort. Clear to auscultation bilaterally. No wheezes rales or rhonchi 6.GI: Soft, Nontender/Nondistended, No hepatosplenomegaly. No guarding or rebound. 7.MSK: Normocephalic, Extremities w/o deformity . No cyanosis or clubbing, patient is able to move all extremities. In spite of no overt evidence of trauma the patient demonstrates tenderness over the chest, shoulders, neck, head, hips, knees. Pelvis is stable, extremities move well and are stable. 8.Skin: Warm, Dry. No rashes or lesions. 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 Sensation grossly intact, no focal neurologic deficits. 10.Psych: (AAO) x3. Appropriate mood and affect Course Vital Signs Vital signs: Vital Signs Pulse 83 05/22/24 18:00 Respiratory Rate 16 05/22/24 18:00 Pulse Oximetry 94 05/22/24 18:00 Pulse 83 05/22/24 18:20 Pulse 66 05/22/24 18:40 Respiratory Rate 16 05/22/24 18:40 Respiratory Effort Normal 05/22/24 18:39 Blood Pressure 146/71 H 05/22/24 18:16 Blood Pressure Mean 98 05/22/24 18:16 Pulse Oximetry 98 05/22/24 18:20 Pain Level 10 05/22/24 18:39 Lab/Test Results Lab/Test Results: Laboratory Tests Range/Units 05/22/24 18:34 WBC (4.4-10.8) 10^3/uL 5.55 RBC (3.93-5.22) 10^6/uL 5.04 Hgb (11.2-15.7) g/dL 14.8 Hct (36.0-46.0) % 43.9 MCV (80-95) fL 87 MCH (27.0-33.0) pg 29.4 MCHC (32.0-36.0) % 33.7 RDW (11.7-14.6) % 13.2 Plt Count (130-400) 10^3/uL 213 MPV (8.0-11.0) fL 10.0 Immature Gran % % 0.4 Neutrophils % % 54.3 Lymphocytes % % 35.9 Monocytes % % 9.2 Eosinophils % % 0.0 Basophils % % 0.2 Nucleated RBC % (0.0-0.3) % 0.0 Absolute Neutrophils (1.2-6.7) 10^3/uL 3.02 Absolute Lymphocytes (1.2-3.4) 10^3/uL 1.99 Absolute Monocytes (0.1-0.8) 10^3/uL 0.51 Absolute Eosinophils (0.0-0.7) 10^3/uL 0.00 Absolute Basophils (0.0-0.2) 10^3/uL 0.01 PT (9.1-11.1) sec 10.5 INR (0.9-1.1) 1.0 APTT (20.6-30.2) sec 24.3 Sodium (136-145) mmol/L 145 Potassium (3.5-5.1) mmol/L 3.8 Chloride (98-107) mmol/L 111 H Carbon Dioxide (21.0-32.0) mmol/L 26.7 Anion Gap (3-11) mmol/L 7.3 BUN (7-18) mg/dL 13 Creatinine (0.55-1.02) mg/dL 1.3 H Est GFR (CKD-EPI 2020) (mL/min/1.73m2) 47.08 Glucose (74-106) mg/dL 102 Calcium (8.5-10.1) mg/dL 9.3 Total Bilirubin (0.2-1.0) mg/dL 0.5 AST (15-37) U/L 19 ALT (14-59) U/L 17 Alkaline Phosphatase (46-116) U/L 164 H Troponin I (<or=51) ng/L 7 Total Protein (6.4-8.2) g/dL 7.2 Albumin (3.4-5.0) g/dL 3.2 L Ethyl Alcohol (<10) mg/dL < 3.0 Medical Decision Making This is a 58-year-old female with a past medical history of obstructive sleep apnea, migraines, PTSD, irritable bowel syndrome, borderline personality disorder, nonepileptiform seizures, breast cancer with bilateral mastectomy, who presents today after fall and seizure. Patient states that she has a history of seizures. Review of records from Jarad Krishnamurthy at [facility] indicate that the patient does have history of recurrent pseudoseizure activity. No neurology notes were available in our records. No neurology records available at [facility]. Patient states that she has been on Lyrica for some time for this, but was recently taken off of this just a few days ago. After which she states she has been having seizures. She states that she has had 3 seizures today, 1 of which occurred while she was at the top of the stairs and she fell down 16 stairs. She had pain in her head neck chest abdomen pelvis and knees. EMS was called and she was brought to the ER for further assessment. She currently admits to continued pain in all of those areas. She did urinate on herself during that initial episode. It was uncertain if it occurred before or after the fall though. Uncertain if there was a loss of consciousness associated with this. EMS reports that the patient did have another episode of a seizure during the ride in where she became borderline unresponsive, however with retraction of her eyelids she did track the light that they were using. By the time the patient arrived she was no longer having any seizure activity or other altered mental status components. Currently the patient admits to pain in all the locations. She denies any other complaints. She denies any vision changes numbness or tingling. No other modifying factors. Exam demonstrates no evidence of focal trauma visually, however the patient has complaints on palpation of tenderness on her head, neck, chest, hips, and knees. Although there is no evidence of significant trauma, with the mechanism and her age concern for fracture or osseous abnormality. Will get CT imaging, monitor closely and reassess. No active evidence of epilepsy at this time, no tongue biting. We will monitor closely and reassess. Uncertain if this was an episode of syncope versus a nonepileptiform seizure. True epileptiform seizures on the differential but less likely considering her history. 11:19 PM While the patient was here she stated that she had 2 additional episodes of seizures. Nursing was present for these episodes. The patient was already lying in bed, and dropped her water. She had no tonic-clonic movements. She had no postictal phase. For that matter there was no clear discernible stage that nursing was able to ascertain or myself was able to ascertain where she was actually significantly unconscious or unresponsive. Seem to be quite rapid or transient component. She thought she had urinated herself, but really it was her cup of water that she had dropped. We did get her up and she was able to ambulate. CT imaging has returned and shows no evidence of acute fracture bleed or other abnormality of significance. She was cleared for her c-collar. Repeat neurologic exam shows no focal neurologic deficits or signs of significant trauma on repeat assessment. Patient was rehydrated with 500 cc bolus. She felt better after this. We did offer a second 500 cc bolus but she declined stating that she needs to leave. I did contact the [facility] and spoke with Dr. Scott. He was able to review records. Last reported seizure evaluation was a decade ago, and etiology of seizures was unclear at that time. No other continued evidence of significant epileptiform seizures requiring persistent antiepileptic medications like Keppra or Depakote. At this time it is felt that starting her on a new antiepileptic like a Keppra loading would potentially be problematic especially with her history of PTSD, borderline personality disorder, and disassociative disorder. At this time we will recommend continuation of her current Topamax therapy. She does have scheduled follow-up with her primary care provider tomorrow and we will recommend continue close follow-up with this. Recommend persistent hydration at home. With no evidence of significant infection, neurologic deficit or other concerning abnormality you do feel that the patient is stable for discharge at this time. Repeat neurologic assessment is unremarkable. Patient will be discharged home. Her significant other will come to pick her up. I have extensively reviewed the treatment plan and discharge instructions with the patient. I have addressed all patient concerns at this time. The patient was made aware of what symptoms to monitor for that would warrant a return to the emergency department. Discussed the plan with the patient, they demonstrate verbal understanding and agreement with our assessment and plan at this time. The documentation in this chart was dictated using [employer] dictation software. Please excuse any dictation errors. FINDINGS: Brain: Normal. No hemorrhage. Unremarkable white matter. No mass effect. Cerebral ventricles: No ventriculomegaly. Paranasal sinuses: Mucous retention cyst/polyp identified in the right maxillary sinus which measures 2.2 cm. Mastoid air cells: Visualized mastoid air cells are well aerated. Bones: Unremarkable. No acute fracture. Soft tissues: Unremarkable. IMPRESSION: 1. No acute intracranial abnormalities identified. 2. Mucous retention cyst/polyp identified in the right maxillary sinus. FINDINGS: Paranasal sinuses: Mucous retention cyst/polyp identified in the right maxillary sinus which measures 1.6 cm by 1.7 cm. Orbital cavities: Orbits are normal. Globes are unremarkable. Bones: No acute fracture. Soft tissues: Unremarkable. IMPRESSION: 1. No acute fracture. 2. Mucous retention cyst/polyp identified in the right maxillary sinus. FINDINGS: Bones: Normal alignment of the cervical vertebral bodies and discs. No acute fracture. No evidence for spondylolysis or spondylolisthesis. No central spinal stenosis or cord compression. Lungs: Lung apices are normal. Soft tissues: Unremarkable. IMPRESSION: 1. No acute fracture. 2. No central spinal stenosis or cord compression. Thank you for allowing us to participate in the care of your patient. Dictated and Authenticated by: Gildardo Rodriguez MD 05/22/2024 8:38 PM Eastern Time ([place]) FINDINGS: Lungs: Mild linear atelectasis in the right lower lobe. Lungs are otherwise clear. Pleural spaces: Unremarkable. No pneumothorax. No pleural effusion. Heart: Unremarkable. No cardiomegaly. No pericardial effusion. Lymph nodes: Unremarkable. No enlarged lymph nodes. Vasculature: Unremarkable. No aortic aneurysm. Bones/joints: Mild multilevel degenerative disc changes in the lower thoracic spine. Osseous alignment is normal. No vertebral body compression. No acute fracture. Soft tissues: Unremarkable. IMPRESSION: No acute abnormality. Incidental findings as noted. FINDINGS: Liver: 7 mm simple cyst is present in the right lobe of the liver. Liver is otherwise unremarkable. Gallbladder and biliary ducts: Normal. No calcified stones. No ductal dilation. Pancreas: Normal. No ductal dilation. Spleen: Normal. No splenomegaly. Adrenal glands: Normal. No mass. Kidneys and ureters: Scattered small simple appearing bilateral renal cortical cysts, the largest measuring 2 cm in the right kidney. No further follow-up indicated. No solid renal mass or hydronephrosis. Stomach and bowel: Unremarkable. No obstruction. No mucosal thickening. Appendix: No evidence of appendicitis. Intraperitoneal space: Unremarkable. No free air. No significant fluid collection. Vasculature: Unremarkable. No abdominal aortic aneurysm. Lymph nodes: Unremarkable. No enlarged lymph nodes. Urinary bladder: Unremarkable as visualized. Reproductive: Uterus is absent. No adnexal abnormality. Bones/joints: Unremarkable. No acute fracture. Soft tissues: Unremarkable. IMPRESSION: No acute abnormality. Chronic findings as noted. Thank you for allowing us to participate in the care of your patient. Dictated and Authenticated by: Fransisco Jacobson MD FINDINGS: Bones/joints: Osseous alignment is normal. No acute fracture. No significant arthritic change or joint fluid. Soft tissues: Normal. IMPRESSION: Negative left knee Thank you for allowing us to participate in the care of your patient. Dictated and Authenticated by: Fransisco Jacobson MD 05/22/2024 8:39 PM Eastern Time ([place]) FINDINGS: Bones/joints: Osseous alignment is normal. No acute fracture. No significant arthritic change or joint fluid. Soft tissues: Normal. IMPRESSION: Hoh right knee Thank you for allowing us to participate in the care of your patient. Dictated and Authenticated by: Fransisco Jacobson MD 05/22/2024 8:40 PM Eastern Time ([place]) Quality:SDOH Health Related Social Needs: No Data to Display PFSH All Active Problems (Updated 05/22/24 @ 23:10 by Alirio Donaldson DO) Acute neck sprain (Acute) Fall (Acute) Headache (Acute) Sinus pressure (Acute) APOLLO (obstructive sleep apnea) (Chronic) Migraine with aura, intractable, with status migrainosus (Acute) Persistent migraine aura without cerebral infarction and with status migrainosus (Acute 03/11/13) Sensorineural hearing loss, bilateral (Chronic 03/19/13) Obstructive sleep apnea (adult) (pediatric) (Acute 03/11/13) Nasal fracture (Acute 12/22/14) Migraine aura, persistent, intractable, with status migrainosus (Acute 11/10/14) Hypertrophy of nasal turbinates (Acute 03/11/13) Acquired deviated nasal septum (Acute 03/11/13) Abnormal auditory perception (Acute 03/19/13) Medical History (Updated 05/22/24 @ 23:10 by Alirio Donaldson DO) Left shoulder pain Granuloma annulare Edema Constipation Dissociative disorder PTSD (post-traumatic stress disorder) Vitamin D deficiency IBS (irritable bowel syndrome) Lactose intolerance Borderline personality disorder Moderate persistent asthma, uncomplicated Sensory hearing loss, bilateral (03/11/13) Hypertrophy, nasal, turbinate (11/10/14) Acquired deflected nasal septum (11/10/14) Abnormal auditory perception (04/04/14) Social History Smoking/Tobacco Use Status: Never Smoking risk assessment performed?: Yes Alcohol Intake: never Drug use: Never Substance use type: does not use Housing: house Do you feel safe at home: Yes Do you feel safe in your relationship?: Yes
[2024-05-22] MEDS: Normal Saline - Diluent 50 ML VIAL IJ (20:01)
[2024-05-22] MEDS: Omnipaque 350 MG/ML 100 ML BTL IJ (20:01)
--- NOTE | 2024-05-22 20:03 | DI.RAD_ITS ---
Exam(s) XR KNEE RT 3V AP,LAT,GUIDO EXAM: XR KNEE RT 3V AP,LAT,GUIDO CLINICAL HISTORY: fell down 16 stairs, now bilat knee pain. TECHNIQUE: 2D digital imaging was performed. Three views. COMPARISON: CR,XR XR KNEE LT 3V AP,LAT,GUIDO from 05/22/2024 FINDINGS: BONES: No acute fracture is present. No bony destructive lesion is seen. JOINTS: The knee is normally aligned. No joint effusion is seen. SOFT TISSUE: Normal. IMPRESSION: Unremarkable radiographs of the right knee. DATA REPOSITORY: RADIATION DOSE DELIVERED:
--- NOTE | 2024-05-22 20:03 | DI.RAD_ITS ---
Exam(s) XR KNEE LT 3V AP,LAT,GUIDO EXAM: XR KNEE LT 3V AP,LAT,GUIDO CLINICAL HISTORY: fell down 16 stairs, now bilat knee pain. TECHNIQUE: 2D digital imaging was performed. Three views. COMPARISON: No exams were available for comparison FINDINGS: BONES: No acute fracture is present. No bony destructive lesion is seen. JOINTS: The knee is normally aligned. No joint effusion is seen. SOFT TISSUE: Normal. IMPRESSION: Normal radiographs of the left knee. DATA REPOSITORY: RADIATION DOSE DELIVERED:
--- NOTE | 2024-05-22 20:03 | DI.CT_ITS ---
Exam(s) CT CHEST/ABD/PEL W EXAM: CT CHEST/ABD/PEL W CLINICAL HISTORY: seizure, fell down 16 stairs, pain in chest. TECHNIQUE: Imaging Protocol: Axial computed tomography images with coronal and sagittal reformatted images were created and reviewed. Computer aided detection (CAD) was utilized. CONTRAST MATERIAL: Intravenous: Omnipaque 350 Contrast volume:100 ml Oral: / no COMPARISON: CT CT RENAL COLIC WO from 10/07/[address] BRAIN NECK CTA from 07/22/2023 FINDINGS: CHEST: Pulmonary parenchyma: No consolidation. No dominant measurable mass. Tracheobronchial tree: No bronchiectasis. No mucous plugging.No bronchial wall thickening. Pleura: No effusion or pneumothorax. Mediastinum: Within normal limits. Pulmonary arteries: No visible emboli. Cardiovascular: No pericardial effusion. Thoracic aorta non-dilated. Bones: Unremarkable for age. No lytic or blastic lesions.No compression fractures. Soft tissues: Unremarkable. ABDOMEN and PELVIS: Liver: Normal density. No suspicious mass. Gallbladder and biliary tract: No evidence of stones or wall thickening. No biliary dilatation. Pancreas: Normal density, no abnormal calcifications or inflammatory process. Spleen: Normal. Kidneys: Normal size, contour and axis. No radiodense stones. No obstructive uropathy. No suspicious masses seen. Adrenal glands: No masses seen. Aorta: Abdominal portion non-dilated. Lymph nodes: Within normal limits. Soft tissues: Unremarkable. Bladder: Unremarkable. Bowel: No obstruction or bowel wall thickening. Peritoneal cavity: No ascites. No focal collection. No mesenteric inflammatory response. No free ai r. Bones: Unremarkable for age. Reproductive organs: Hysterectomy. IMPRESSION: No acute abnormality in the chest, abdomen or pelvis. RADIATION DOSE DELIVERED: 1,708.52mGy.cm Total DLP DATA REPOSITORY: All CT scans at this facility are submitted to the National Radiology Data Registry (NRDR) Dose Index Registry (DIR) with the [employer] ([employer]). RADIATION OPTIMIZATION: All CT scans at this facility use at least one of these dose optimization te chniques: automated exposure control; mA and/or kV adjustment per patient size (includes targeted exa ms where dose is matched to clinical indication); or iterative reconstruction.
--- NOTE | 2024-05-22 20:03 | DI.CT_ITS ---
Exam(s) CT HEAD CERV SPINE FACIAL WO EXAM: CT HEAD CERV SPINE FACIAL WO CLINICAL HISTORY: seizure, fell, hit head/neck pain. TECHNIQUE: Imaging Protocol: Axial computed tomography images with coronal and sagittal reformatted images were created and reviewed COMPARISON: CT CT BRAIN NECK CTA from 07/22/2023 FINDINGS: CT Head: Ventricles and Extra axial spaces: Normal in size and morphology for the patient's age. Hemorrhage: None. Cerebral parenchyma: No evidence of acute hemorrhage or acute infarct. Midline shift: None. Brainstem/Cerebellum: Normal. Calvarium: Normal. Visualized Paranasal sinuses/Mastoids: Mucous retention cyst versus polyp in the right maxillary sinu s. Soft Tissues: Unremarkable. CT Face: Facial Bones: No fracture is noted in facial bones. Sinuses and Mastoids: Unremarkable mucous retention cyst in the right maxillary sinus. Globes, extraocular muscles, optic nerves and retrobulbar fat: Normal. Upper aerodigestive tract: Normal. Mandible and bilateral temporomandibular joints: Normal. Soft tissues: Normal. CT Cervical Spine: Bones: No acute fracture or subluxation. Soft Tissues: Unremarkable. Lung Apices: Clear. IMPRESSION: 1. No acute intracranial process. 2. No acute fracture or subluxation in the cervical spine. 3. No acute facial fracture. RADIATION DOSE DELIVERED: 2,217.53mGy.cm Total DLP DATA REPOSITORY: All CT scans at this facility are submitted to the National Radiology Data Registry (NRDR) Dose Index Registry (DIR) with the [employer] ([employer]). RADIATION OPTIMIZATION: All CT scans at this facility use at least one of these dose optimization te chniques: automated exposure control; mA and/or kV adjustment per patient size (includes targeted exa ms where dose is matched to clinical indication); or iterative reconstruction.
--- NOTE | 2024-05-22 20:38 | DI.VRAD_ITS ---
PROCEDURE INFORMATION: Exam: CT Head Without Contrast Exam date and time: 05/22/2024 7:28 PM Age: 58 years old Clinical indication: Injury or trauma; Fall; Blunt trauma (contusions or hematomas); Consciousness not specified; Head/scalp; Loss of consciousness not known; Injury date: 05/22/24; Seizure, fell, hit head/neck pain TECHNIQUE: Imaging protocol: Computed tomography of the head without contrast. Radiation optimization: All CT scans at this facility use at least one of these dose optimization techniques: automated exposure control; mA and/or kV adjustment per patient size (includes targeted exams where dose is matched to clinical indication); or iterative reconstruction. COMPARISON: CT BRAIN NECK CTA 07/22/2023 2:51 PM FINDINGS: Brain: Normal. No hemorrhage. Unremarkable white matter. No mass effect. Cerebral ventricles: No ventriculomegaly. Paranasal sinuses: Mucous retention cyst/polyp identified in the right maxillary sinus which measures 2.2 cm. Mastoid air cells: Visualized mastoid air cells are well aerated. Bones: Unremarkable. No acute fracture. Soft tissues: Unremarkable. IMPRESSION: 1. No acute intracranial abnormalities identified. 2. Mucous retention cyst/polyp identified in the right maxillary sinus. PROCEDURE INFORMATION: Exam: CT Maxillofacial Without Contrast Exam date and time: 05/22/2024 7:28 PM Age: 58 years old Clinical indication: Injury or trauma; Fall; Blunt trauma (contusions or hematomas); Consciousness not specified; Head/scalp; Loss of consciousness not known; Injury date: 05/22/24; Seizure, fell, hit head/neck pain TECHNIQUE: Imaging protocol: Computed tomography of the face without contrast. Radiation optimization: All CT scans at this facility use at least one of these dose optimization techniques: automated exposure control; mA and/or kV adjustment per patient size (includes targeted exams where dose is matched to clinical indication); or iterative reconstruction. COMPARISON: CT FACIAL WITHOUT CONTRAST 07/16/2014 7:34 PM FINDINGS: Paranasal sinuses: Mucous retention cyst/polyp identified in the right maxillary sinus which measures 1.6 cm by 1.7 cm. Orbital cavities: Orbits are normal. Globes are unremarkable. Bones: No acute fracture. Soft tissues: Unremarkable. IMPRESSION: 1. No acute fracture. 2. Mucous retention cyst/polyp identified in the right maxillary sinus. PROCEDURE INFORMATION: Exam: CT Cervical Spine Without Contrast Exam date and time: 05/22/2024 7:28 PM Age: 58 years old Clinical indication: Injury or trauma; Fall; Blunt trauma (contusions or hematomas); Consciousness not specified; Head/scalp; Loss of consciousness not known; Injury date: 05/22/24; Seizure, fell, hit head/neck pain TECHNIQUE: Imaging protocol: Computed tomography of the cervical spine without contrast. Radiation optimization: All CT scans at this facility use at least one of these dose optimization techniques: automated exposure control; mA and/or kV adjustment per patient size (includes targeted exams where dose is matched to clinical indication); or iterative reconstruction. COMPARISON: CT BRAIN NECK CTA 07/22/2023 2:51 PM FINDINGS: Bones: Normal alignment of the cervical vertebral bodies and discs. No acute fracture. No evidence for spondylolysis or spondylolisthesis. No central spinal stenosis or cord compression. Lungs: Lung apices are normal. Soft tissues: Unremarkable. IMPRESSION: 1. No acute fracture. 2. No central spinal stenosis or cord compression. Dictated and Authenticated by: Gildardo Rodriguez MD. Orderin Anika Amezquita MD
--- NOTE | 2024-05-22 20:39 | DI.VRAD_ITS ---
PROCEDURE INFORMATION: Exam: CT Chest With Contrast; Diagnostic Exam date and time: 05/22/2024 7:38 PM Age: 58 years old Clinical indication: Injury or trauma; Fall; Generalized; Blunt trauma (contusions or hematomas); Injury date: 05/22/24; Seizure, fell down 16 stairs, pain in chest TECHNIQUE: Imaging protocol: Diagnostic computed tomography of the chest with contrast. Radiation optimization: All CT scans at this facility use at least one of these dose optimization techniques: automated exposure control; mA and/or kV adjustment per patient size (includes targeted exams where dose is matched to clinical indication); or iterative reconstruction. Contrast material: [id number]; Contrast volume: 100 ml; Contrast route: INTRAVENOUS (IV); COMPARISON: CR XR CHEST 2V PA LATERAL 03/26/2024 1:51 PM FINDINGS: Lungs: Mild linear atelectasis in the right lower lobe. Lungs are otherwise clear. Pleural spaces: Unremarkable. No pneumothorax. No pleural effusion. Heart: Unremarkable. No cardiomegaly. No pericardial effusion. Lymph nodes: Unremarkable. No enlarged lymph nodes. Vasculature: Unremarkable. No aortic aneurysm. Bones/joints: Mild multilevel degenerative disc changes in the lower thoracic spine. Osseous alignment is normal. No vertebral body compression. No acute fracture. Soft tissues: Unremarkable. IMPRESSION: No acute abnormality. Incidental findings as noted. PROCEDURE INFORMATION: Exam: CT Abdomen And Pelvis With Contrast Exam date and time: 05/22/2024 7:38 PM Age: 58 years old Clinical indication: Injury or trauma; Fall; Generalized; Blunt trauma (contusions or hematomas); Injury date: 05/22/24; Seizure, fell down 16 stairs, pain in chest TECHNIQUE: Imaging protocol: Computed tomography of the abdomen and pelvis with contrast. Radiation optimization: All CT scans at this facility use at least one of these dose optimization techniques: automated exposure control; mA and/or kV adjustment per patient size (includes targeted exams where dose is matched to clinical indication); or iterative reconstruction. Contrast material: [id number]; Contrast volume: 100 ml; Contrast route: INTRAVENOUS (IV); COMPARISON: CT RENAL COLIC WO 10/07/2022 4:16 PM FINDINGS: Liver: 7 mm simple cyst is present in the right lobe of the liver. Liver is otherwise unremarkable. Gallbladder and biliary ducts: Normal. No calcified stones. No ductal dilation. Pancreas: Normal. No ductal dilation. Spleen: Normal. No splenomegaly. Adrenal glands: Normal. No mass. Kidneys and ureters: Scattered small simple appearing bilateral renal cortical cysts, the largest measuring 2 cm in the right kidney. No further follow-up indicated. No solid renal mass or hydronephrosis. Stomach and bowel: Unremarkable. No obstruction. No mucosal thickening. Appendix: No evidence of appendicitis. Intraperitoneal space: Unremarkable. No free air. No significant fluid collection. Vasculature: Unremarkable. No abdominal aortic aneurysm. Lymph nodes: Unremarkable. No enlarged lymph nodes. Urinary bladder: Unremarkable as visualized. Reproductive: Uterus is absent. No adnexal abnormality. Bones/joints: Unremarkable. No acute fracture. Soft tissues: Unremarkable. IMPRESSION: No acute abnormality. Chronic findings as noted. Dictated and Authenticated by: Fransisco Jacobson MD. Orderin Anika Amezquita MD
--- NOTE | 2024-05-22 20:40 | DI.VRAD_ITS ---
PROCEDURE INFORMATION: Exam: XR Left Knee Exam date and time: 05/22/2024 7:52 PM Age: 58 years old Clinical indication: Injury or trauma; Fall; Blunt trauma; Bilateral; Injury date: 05/22/24; Fell down 16 stairs, bilat knee pain TECHNIQUE: Imaging protocol: Radiologic exam of the left knee. Views: 3 views. COMPARISON: No relevant prior studies available. FINDINGS: Bones/joints: Osseous alignment is normal. No acute fracture. No significant arthritic change or joint fluid. Soft tissues: Normal. IMPRESSION: Negative left knee Dictated and Authenticated by: Fransisco Jacobson MD. Orderin Anika Amezquita MD
--- NOTE | 2024-05-22 20:41 | DI.VRAD_ITS ---
PROCEDURE INFORMATION: Exam: XR Right Knee Exam date and time: 05/22/2024 7:55 PM Age: 58 years old Clinical indication: Injury or trauma; Fall; Blunt trauma; Knee; Bilateral; Injury date: 05/22/24; Fell down 16 stairs TECHNIQUE: Imaging protocol: Radiologic exam of the right knee. Views: 3 views. COMPARISON: No relevant prior studies available. FINDINGS: Bones/joints: Osseous alignment is normal. No acute fracture. No significant arthritic change or joint fluid. Soft tissues: Normal. IMPRESSION: [place] right knee Dictated and Authenticated by: Fransisco Jacobson MD. Orderin Anika Amezquita MD
[2024-05-22 20:44] LABS: Troponin I 7 ng/L (<or=51)
[2024-05-22] MEDS: ACETAMINOPHEN 1,000 MG/100 ML BAG 400 MG IVPB (21:38)
[2024-05-22] MEDS: Normal Saline 500 ML IV (21:38)
[2024-05-22 22:07] LABS: Troponin I 6 ng/L (<or=51)
[2024-05-22 22:21] LABS: Bilirubin Negative (Negative); Blood Negative (Negative); Clarity Cloudy (Clear); Glucose Negative (Negative); Ketones Negative (Negative); Leukocyte Esterase Trace (Negative); Nitrite Negative (Negative); Specific Gravity 1.015 (1.005-1.025); Urobilinogen 0.2 mg/dL (Up to 0.2); pH 7.5 (5-8)
[2024-05-22 22:28] LABS: Bacteria Moderate HPF (Negative); C & S Indicated? No/Sq. Contamination; Casts Negative LPF (Negative); Crystals Negative HPF (Negative); Epithelial Cells Moderate HPF (Negative); Mucus Negative (Negative); RBC Negative HPF (0-2); WBC 0-2 HPF (0-5)
== END 2024-05-22 23:36 | disposition home or self-care (01) ==
PROVIDERS: Emergency Provider Student in an Organized Health Care Education/Training Program; PCP Physician Assistant
DX: S13.4XXA Sprain of ligaments of cervical spine, initial encounter (principal); M25.562 Pain in left knee; M25.561 Pain in right knee; G40.909 Epilepsy, unspecified, not intractable, without status epilepticus; I44.4 Left anterior fascicular block; W10.8XXA Fall (on) (from) other stairs and steps, initial encounter; Y93.89 Activity, other specified; Y92.028 Other place in mobile home as the place of occurrence of the external cause
CPT/HCPCS: 36415; 73562; 74177; 80053; 93005; 96361; 96365; 99285; 70450; 70486; 71260; 72125; 80320; 81003; 81015; 84484; 85025; 85610; 85730; 93010; 99284; J0131; J3490

== ENCOUNTER 2024-08-12 14:51 | Emergency (ER) | payer MEDICARE, MEDICAID, SELFPAY ==
[2024-08-12 15:00] VITALS: BP 124/89; PULSE 72; RESP 12; TEMP 36.9; O2SAT 98
--- NOTE | 2024-08-12 16:08 | W.ED.GENAD ---
Discharge Plan Disposition Patient Disposition: Home Condition: Stable Discharge Details Clinical Impression: Peripheral edema Primary Care Provider: Jarad Krishnamurthy ED Provider: Brenda oWng Home Meds and New Rx's Prescriptions: New furosemide [Lasix] 20 mg tablet 20 mg PO DAILY 5 Days Qty: 5 0RF No Action topiramate 100 mg tablet 125 mg PO BID propranolol 20 mg tablet 20 mg PO BID pyridoxine (vitamin B6) [Vitamin B-6] 50 mg tablet 50 mg PO DAILY venlafaxine 75 mg capsule,extended release 24hr 100 mg PO BID bupropion HCl 300 mg tablet extended release 24 hr 300 mg PO DAILY Ensure Liquid 236 ml PO DAILY Nephro-Bess 0.8 mg tablet 1 tab PO DAILY budesonide-formoterol [Symbicort] 160-4.5 mcg/actuation HFA aerosol inhaler 2 puff inhalation BID ropinirole 1 MG tablet 1 mg PO HS Patient Comments: 2-3 hours prior to HS sumatriptan succinate [Imitrex] 50 MG tablet 50 mg PO PRN PRN docusate sodium [Colace] 100 MG capsule 100 mg PO BID albuterol sulfate [ProAir HFA] 200 PUFF HFA aerosol inhaler 2 puff Inhalation Q4H PRN PRN cholecalciferol (vitamin D3) 25 mcg (1,000 unit) Tablet 50 mcg PO DAILY furosemide 20 mg tablet 20 mg PO DAILY amitriptyline 10 mg tablet 10 mg PO HS polyethylene glycol 3350 [Miralax] 17 gram/dose Powder 17 g PO DAILY PRN clobetasol 0.05 % ointment 1 applic topical BID meclizine 25 mg tablet 25 mg PO TID PRN (Reason: dizziness) Qty: 30 0RF Discharge Instructions Instructions: Lymphedema (DC) Additional Instructions: You were seen in the emergency department today for evaluation of leg swelling. In our department you had a full physical examination performed, had reassuring laboratory studies and an ultrasound that was negative for blood clots. I am concerned that this is due to extra fluid on your body, and recommend that for the next 3 to 5 days you increase your Lasix dose from 20 mg daily to 40 mg daily. I have sent you up a small prescription of Lasix to ensure that you have enough to do this, you will be taking a total of 2 tablets. You need to call your primary care provider tomorrow to schedule a repeat appointment for reassessment to ensure that we do not overdiuresis and cause you to become dehydrated. You can wear the compression socks to improve your swelling, and elevate your feet. Please follow-up with your primary care provider in the next few days to discuss this visit and any symptoms that change, worsen, or persist. Thank you for allowing us to be part of your care. HPI General Mode of arrival: ambulatory. Date/Time Provider Initiated Documentation: 08/12/24 15:09. Limitations to Documentation: no limitations. Information obtained by: patient and old records reviewed. HPI Narrative: This is a 58-year-old female patient with a past medical history significant for APOLLO, migraine, status post bilateral mastectomy, presenting for evaluation of bilateral lower extremity swelling. She notices 2 or 3 days ago, left leg seems to be worse than her right, and both legs are painful. She takes Lasix 20 mg, states she has been urinating but is concerned that potentially she has too much fluid on her body. She reports that she has chronic chest pain at baseline associated with her surgical incision, denies any changes to this pain. She notes no shortness of breath or cough, has no personal history of DVT or pulmonary embolism and does not take any anticoagulant medications. She has been able to ambulate, denies sensory changes or weakness. Related Data Home Medications ?Medication ?Instructions ?Recorded ?Confirmed docusate sodium 100 mg capsule 100 mg PO BID 04/30/13 08/12/24 (Colace) ropinirole 1 mg tablet 1 mg PO HS 04/30/13 08/12/24 sumatriptan succinate 50 mg tablet 50 mg PO PRN PRN 04/30/13 08/12/24 (Imitrex) albuterol sulfate 90 mcg/actuation 2 puff inhalation Q4H PRN PRN 12/12/14 08/12/24 aerosol inhaler (ProAir HFA) meclizine 25 mg tablet 25 mg PO TID PRN dizziness #30 tabs 06/29/18 08/12/24 amitriptyline 10 mg tablet 10 mg PO HS 10/07/22 08/12/24 cholecalciferol (vitamin D3) 25 50 mcg PO DAILY 10/07/22 08/12/24 mcg (1,000 unit) tablet furosemide 20 mg tablet 20 mg PO DAILY 10/07/22 08/12/24 polyethylene glycol 3350 17 17 g PO DAILY PRN 10/07/22 08/12/24 gram/dose oral powder (Miralax) clobetasol 0.05 % topical ointment 1 applic topical BID 07/22/23 08/12/24 topiramate 100 mg tablet 125 mg PO BID 02/02/24 08/12/24 budesonide-formoterol HFA 160 2 puff inhalation BID 06/18/24 08/12/24 mcg-4.5 mcg/actuation aerosol inhaler (Symbicort) bupropion HCl 300 mg 24 hr tablet, 300 mg PO DAILY 06/18/24 08/12/24 extended release food supplemt, lactose-reduced 236 ml PO DAILY 06/18/24 08/12/24 (Ensure oral liquid) propranolol 20 mg tablet 20 mg PO BID 06/18/24 08/12/24 pyridoxine (vitamin B6) 50 mg 50 mg PO DAILY 06/18/24 08/12/24 tablet (Vitamin B-6) venlafaxine 75 mg capsule,extended 100 mg PO BID 06/18/24 08/12/24 release 24 hr vitamin B complex-vitamin C-folic 1 tab PO DAILY 06/18/24 08/12/24 acid 0.8 mg tablet (Nephro-Bess) furosemide 20 mg tablet (Lasix) 20 mg PO DAILY 5 days #5 tabs 08/12/24 Previous Rx's ?Medication ?Instructions ?Recorded meclizine 25 mg tablet 25 mg PO TID PRN dizziness #30 tabs 06/29/18 furosemide 20 mg tablet (Lasix) 20 mg PO DAILY 5 days #5 tabs 08/12/24 Allergies Allergy/AdvReac Type Severity Reaction Status Date / Time clindamycin Allergy Intermediate Skin Rash Verified 08/12/24 15:06 Penicillins Allergy Intermediate Skin Rash Verified 08/12/24 15:06 valdecoxib (From Bextra) Allergy Intermediate Skin Rash Verified 08/12/24 15:06 pregabalin (From Lyrica) Allergy Unknown facial Unverified 08/12/24 15:06 swelling tolmetin Allergy Swelling/Ed Verified 08/12/24 15:06 abelino egg AdvReac Intermediate Other (See Verified 08/12/24 15:06 Comment) lactose AdvReac Intermediate Other (See Verified 08/12/24 15:06 Comment) mirtazapine (From Remeron) AdvReac Intermediate confusion, Verified 08/12/24 15:06 disorientation General Stated Complaint: GenMedical GREG: 3 Exam Narrative Exam Narrative: Gen: awake and alert, in no apparent distress. Appears well nourished. HEENT: PERRL Neck: Supple, full range of motion, no observable masses Lungs: No increased work of breathing, lung sounds clear and equal bilaterally without wheezes, rhonchi, or rales. CV: Heart with regular rate and rhythm, no murmurs auscultated. Strong and symmetrical radial pulses. Abdomen: Soft, nondistended, non-tender to palpation. No rigidity, rebound tenderness, or guarding. MSK: No joint swelling, no redness. Full ROM without limitation, no external traumatic findings. The bilateral lower extremities reveal 1+ peripheral edema to the left lower extremity, trace peripheral edema to the right, bilateral calf tenderness noted. Strong DP pulses, symmetrical bilaterally Skin: No rashes or lesions to visualized skin. Normal color, warm, and dry. Neuro: Cranial nerves II-XII intact and symmetrical bilaterally. 5/5 strength in all muscle groups x4 extremities. No sensory deficits. Ambulates with steady gait. Psych: Appropriate for situation. Course Vital Signs Vital signs: Vital Signs Temperature 36.9 C 08/12/24 15:00 Pulse 72 08/12/24 15:00 Respiratory Rate 12 08/12/24 15:00 Blood Pressure 124/89 08/12/24 15:00 Pulse Oximetry 98 08/12/24 15:00 Temperature 36.9 C 08/12/24 15:00 Temperature Source Oral 08/12/24 15:00 Pulse 72 08/12/24 15:00 Respiratory Rate 12 08/12/24 15:00 Blood Pressure 124/89 08/12/24 15:00 Blood Pressure Position Standing 08/12/24 15:00 Pulse Oximetry 98 08/12/24 15:00 Pain Level 8 08/12/24 15:00 Medical Decision Making This is a 58-year-old female patient presenting for evaluation of lower extremity swelling. My differential includes but is not limited to CHF, dependent edema, certainly considered DVT given the asymmetry. The patient has no evidence for arterial occlusion, no evidence for cellulitis or other infectious findings on my physical examination. She has baseline chest pain associated with a skin incision though certainly given her age I did consider ACS. We will obtain a laboratory workup to include CBC, CMP, magnesium, troponin, D-dimer, BNP, and I will perform a bedside ultrasound to evaluate for blood clot. - I independently interpreted the laboratory studies, which show no significant leukocytosis, anemia, or thrombocytopenia. The chemistry panel is without evidence of electrolyte abnormality, kidney dysfunction, or liver injury. D-dimer and troponin was negative. The patient is not experiencing chest pain and I do not see an indication to check serial troponins at this time. BNP is very slightly elevated to 700, and I do suspect that some fluid overload may be contributing to her symptoms. [id number] ultrasound for blood clots was negative, and in the setting of a negative D-dimer I feel that this represents a conclusive test. I suggested to the patient that she trial compression stockings, and these were provided to her in the ED. I recommended that she take 40 mg of Lasix daily for the next 3 to 5 days, and reach out to her primary care provider for reassessment tomorrow. She understands that she should stop the medication if she feels dizziness, lightheadedness, loss of consciousness, or other symptoms of dehydration and overdiuresis. I provided her with a short prescription to ensure that she had adequate amounts of medication for this change. At this time, the patient has had a full medical evaluation and is safe for discharge to home. They are hemodynamically stable, ambulatory, and tolerating PO. They are understanding of the follow-up plan and return precautions. They left our facility without incident. Brenda Wong MD [facility] All Active Problems (Updated 08/12/24 @ 18:16 by Brenda Wong MD) Peripheral edema (Acute) Hard of hearing (Acute) Headache (Acute) Sinus pressure (Acute) APOLLO (obstructive sleep apnea) (Chronic) Migraine with aura, intractable, with status migrainosus (Acute) Persistent migraine aura without cerebral infarction and with status migrainosus (Acute 03/11/13) Sensorineural hearing loss, bilateral (Chronic 03/19/13) Obstructive sleep apnea (adult) (pediatric) (Acute 03/11/13) Nasal fracture (Acute 12/22/14) Migraine aura, persistent, intractable, with status migrainosus (Acute 11/10/14) Hypertrophy of nasal turbinates (Acute 03/11/13) Acquired deviated nasal septum (Acute 03/11/13) Abnormal auditory perception (Acute 03/19/13) Medical History (Updated 08/12/24 @ 18:16 by Brenda Wong MD) Peripheral neuropathy Intertrigo Chronic migraine without aura Renal insufficiency Non-refractory chronic migraine without aura Periodic limb movement disorder (PLMD) Bunion Dysphagia Seasonal allergic rhinitis Anxiety disorder Obesity (BMI 30-39.9) Hearing loss Malignant tumor of breast Osteopenia Seizure disorder Left shoulder pain Granuloma annulare Edema Constipation Dissociative disorder PTSD (post-traumatic stress disorder) Vitamin D deficiency IBS (irritable bowel syndrome) Lactose intolerance Borderline personality disorder Moderate persistent asthma, uncomplicated Sensory hearing loss, bilateral (03/11/13) Hypertrophy, nasal, turbinate (11/10/14) Acquired deflected nasal septum (11/10/14) Abnormal auditory perception (04/04/14) Surgical History (Updated 06/18/24 @ 14:03 by Isabel Olea RN) History of tubal ligation History of colonoscopy History of esophagogastroduodenoscopy (EGD) Hx of hysterectomy Hx of bilateral mastectomy Family History (Updated 06/18/24 @ 14:06 by Isabel Olea RN) Brother FH: prostate cancer Diabetes Father Colon cancer Mother , age 80 Breast cancer Colon cancer Macular degeneration Maternal Grandmother Breast cancer Aunt Breast cancer Cervical cancer Bladder cancer Social History Smoking/Tobacco Use Status: Never Smoking risk assessment performed?: Yes Alcohol Intake: never Drug use: Never Substance use type: does not use Housing: house Do you feel safe at home: Yes Do you feel safe in your relationship?: Yes POCUS Exam (ED) Limited Vascular Exam DATE OF EXAM: 08/12/24 TIME OF EXAM: 16:37 PROVIDER THAT PERFORMED THE STUDY: Brenda Wong Vascular Exam: Left lower extremity REASON FOR EXAM: Concern for DVT left lower extremity and Left lower extremity swelling/edema VISUALIZED STRUCTURES: Left common femoral vein, Left popliteal vein and Left superficial femoral vein PERTINENT FINDINGS/IMPRESSION: Compressible veins left leg and No apparent abnormalities Exam Complete
[2024-08-12] MEDS: Acetaminophen 500 MG TAB 1000 MG PO (16:17)
[2024-08-12 17:18] LABS: Abs Immature Grans 0.01 10^3/uL (0.0-0.06); Absolute Basophil Count 0.01 10^3/uL (0.0-0.2); Absolute Lymphocyte Count 1.88 10^3/uL (1.2-3.4); Basophils % 0.2 %; HCT 41.8 % (36.0-46.0); HGB 14.1 g/dL (11.2-15.7); Immature Grans % 0.2 %; Lymphocytes % 31.3 %; MCH 29.1 pg (27.0-33.0); MCHC 33.7 % (32.0-36.0); MCV 86 fL (80-95); MPV 9.5 fL (8.0-11.0); Monocytes % 6.7 %; Neutrophils % 61.6 %; Platelet Count 207 10^3/uL (130-400); RBC 4.85 10^6/uL (3.93-5.22); RDW 13.4 % (11.7-14.6); RDW-SD 41.3 fL
[2024-08-12 17:41] LABS: ALT 15 U/L (14-59); AST 15 U/L (15-37); Albumin 3.3 g/dL (3.4-5.0); Alkaline Phosphatase 168 U/L (46-116); Anion Gap 7.2 mmol/L (3-11); BUN 14 mg/dL (7-18); Bilirubin, Total 0.7 mg/dL (0.2-1.0); CO2 27.8 mmol/L (21.0-32.0); Calcium 9.2 mg/dL (8.5-10.1); Chloride 110 mmol/L (98-107); Estimated GFR 64.49 (mL/min/1.73m2); Glucose 99 mg/dL (74-106); Magnesium 2.1 mg/dL (1.8-2.4); NT-proBNP 729 pg/mL (<300); Sodium 145 mmol/L (136-145); Total Protein 7.1 g/dL (6.4-8.2); Troponin I 6 ng/L (<or=51)
[2024-08-12 17:44] LABS: D-Dimer 456 ng/mlFEU (<500)
[2024-08-12 17:45] VITALS: BP 124/89; PULSE 72; RESP 12; RESP 20; TEMP 36.9; O2SAT 98
== END 2024-08-12 18:31 | disposition home or self-care (01) ==
PROVIDERS: Emergency Provider Emergency Medicine; PCP Physician Assistant
DX: R60.0 Localized edema (principal); R07.9 Chest pain, unspecified
CPT/HCPCS: 99284 ×2; 80053; 93971; 83735; 83880; 84484; 85025; 85379

== ENCOUNTER 2024-10-01 14:26 | Outpatient (CLI) | payer MEDICARE, MEDICAID, SELFPAY ==
--- NOTE | 2024-10-01 14:30 | DI.US_ITS ---
APPROVED REPORT EXAM: Comprehensive 2D, Doppler, and color-flow Echocardiogram Patient Location: Out-Patient Hatchery Man: Elisha Henriquez RDCS (AE) Indications: Exertional dyspnea Other Information Study Quality: Fair. Technically limited study due to body habitus unable to compress, h/o breast surgery. Conclusion Normal left ventricular wall thickness and chamber size. Ejection fraction is 55 to 60%. Wall motion is normal. Diastolic function was normal for age Normal right ventricular size and function Both atria are normal in size There are no structural valvular abnormalities Mild tricuspid regurgitation with estimated right ventricular systolic pressure of 29 mmHg Minimally dilated ascending aorta measuring 3.4 cm Wall motion Left Ventricle The left ventricle is normal size. The left ventricular systolic function is normal. The left ventricular ejection fraction is within the normal range. There is normal left ventricular wall thickness. There is normal LV segmental wall motion. There is no ventricular septal defect visualized. LVEF is 55%. Right Ventricle The right ventricle is normal size. The right ventricular systolic function is normal. Atria The left atrium size is normal. The right atrium size is normal. The interatrial septum is intact with no evidence for an atrial septal defect. Aortic Valve The aortic valve is normal in structure. Aortic valve is trileaflet. There is no aortic valvular stenosis. No aortic regurgitation is present. Mitral Valve The mitral valve is normal in structure. No evidence of mitral valve stenosis. Trace mitral regurgitation. Tricuspid Valve The tricuspid valve is normal in structure. There is no tricuspid valve stenosis. Mild tricuspid regurgitation. The RVSP is 28.6 mmHg. Pulmonic Valve The pulmonary valve is normal in structure. There is no pulmonic valvular stenosis. Trace pulmonic regurgitation. Great Vessels The aortic root is normal in size. The ascending aorta is mildly dilated. Aortic arch is not well visualized. IVC is normal in size and collapses >50% with inspiration. Pericardium There is no pericardial effusion. 2D Dimensions IVSD d PLAX 0.84 cm F: 0.6-1.0 Ao Root d 2.64 cm F: 2.7 - 3.3 LVPW d PLAX 0.80 cm F: 0.6 - 1.0 Ao Asc Diam d 3.40 cm F: 2.3 - 3.1 LVID d PLAX 4.45 cm F: 3.8 - 5.2 LVDs 3.12 cm F: 2.2 - 3.5 LV EF Teichholz 57.4 % FS 30.02 % LV EDV (Teich) 90.1 mL LV ESV (Teich) 38.4 mL M-Mode TAPSE 2.48 cm (M/F) >1.7 Auto EF LV EDV A4C 91.8 mL LV EDV A2C 101.5 mL LV EDV BP 97.9 mL LV ESV A4C 40.9 mL LV ESV A2C 45.7 mL LV ESV BP 43.4 mL LVEF(%) A4C 55.5 % LVEF(%) A2C 54.9 % LVEF(%) BP 55.7 % LV SV A4C 50.9 ml LV SV A2C 55.8 ml LV SV BP 54.5 ml LV CO A4C 3.1 L/min LV CO A2C 3.2 L/min LV CO BP 3.1 L/min HR A4C 60.00 BPM HR A2C 57.42 BPM LV EDV Index (BP) LA Volume LA Length A4C 4.6 cm LA Length A2C 4.0 cm LA Area A4C s 14.19 cm2 LA Area A2C s 11.76 cm2 LA Vol A4C A-L 36.95 mL LA Vol A2C A-L 29.23 mL LA Vol Biplane A-L 35.3 mL LA Vol/BSA A4C A-L LA Vol/BSA A2C A-L LA Vol/BSA BP A-L 16.2 mL/m2 LA Vol A4C MOD 34.3 mL LA Vol A2C MOD 27.5 mL LA Vol BP MOD 32.7 mL LV Diastology MV E' medial 0.104 (>0.07 m/s) MV E Vmax 0.73 (0.4-1.3 m/s) MV E/E' MED 7.04 (<14) MV A Vmax 0.60 (0.4-1.3 m/s) E/A Ratio 1.2 Aortic Valve AoV Vmax 1.29 m/s LVOT Vmax 1.00 m/s AoV Peak Grad 6.6 mmHg LVOT Peak Grad 4.0 mmHg AoV Area (Vmax) 2.21 cm2 LVOT VTI 0.228 m AoV VTI 0.292 m LVOT Mean Grad 2.1 mmHg AoV Mean Sonny. 0.83 m/s LVOT SV 64.87 mL AoV Mean Grad 3.2 mmHg LVOT Diam s 1.90 cm AoV Area (VTI) 2.22 cm2 AV Regurg Peak Gr. 6.63 mmHg Velocity Ratio 0.78 Mitral Valve MV DT 267 (160-240 msec) MV Vmax TIPS 0.70 m/s MV Mean Grad 0.8 (<2mmHg) MV VTI 0.275 m Pulmonary Valve PV Vmax 1.09 (0.5-1.5 m/s) RVOT Vmax 0.65 m/s PV Peak Grad 4.7 mmHg RVOT Peak Gr. 1.7 mmHg PV Mean Sonny 0.79 m/s RVOT VTI 0.162 m PV Mean Grad 2.7 mmHg RVOT Mean Gr. 1.0 mmHg Tricuspid Valve RA Pressure 3.00 mmHg TR Vmax 2.53 m/s TV S' 0.12 m/s TR Peak Grad 25.5 mmHg RVSP (TR) 28.6 mmHg
== END 2024-10-01 14:46 ==
LOC: DI 14:27
PROVIDERS: PCP Physician Assistant; Visit Provider Physician Assistant
DX: R06.09 Other forms of dyspnea (principal); I36.0 Nonrheumatic tricuspid (valve) stenosis
CPT/HCPCS: 93306